=== PATIENT | female | born 1935 | race Caucasian/White ===

== ENCOUNTER 2017-03-09 14:10 | Emergency (ER) | payer OTHER, MEDICARE ==
[2017-03-09] MEDS ORDERED: SODIUM CHLORIDE 0.9% 1,000 ML IV STA (14:20)
[2017-03-09] MEDS ORDERED: DIPH,PERTUS(ACELL)TETVAC-LF 0.5 ML VIAL IM ONE (14:20)
[2017-03-09] MEDS ORDERED: RX INFO: IV CONTRAST WAS GIVEN 1 EACH MISC MISCELLANE PRN (14:20)
[2017-03-09 14:40] VITALS: RESP 20
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
[2017-03-09 14:59] LABS: Basophils % (A) 0 %; CH 31.4; CHCM 32.3; Eosinophils # (A) 0.2 k/uL (0-0.7); Eosinophils % (A) 2 %; HCT 40.2 % (34.0-46.0); HGB 13.2 gm/dL (11.4-16.0); Luc # (Auto) 0.11; Luc % (Auto) 1; Lymphocytes # (A) 1.6 k/uL (1.0-4.8); Lymphocytes % (A) 19 %; MCH 32.1 pg (25.0-35.0); MCHC 32.8 g/dL (31.0-37.0); MCV 97.7 fL (80.0-100.0); Mean Platelet Volume 6.9; Monocytes # (A) 0.4 k/uL (0-1.0); Monocytes % (A) 5 %; Neutrophils # (A) 6.3 k/uL (1.3-7.7); Neutrophils % (A) 73 %; RBC 4.11 m/uL (3.80-5.40); RDW 13.1 % (11.5-15.5); WBC 8.6 k/uL (3.8-10.6); WBC (Perox) 8.67
[2017-03-09 15:06] LABS: INR 1.1 (<1.2); Prothrombin Time 11.4 sec (9.0-12.0)
[2017-03-09 15:15] LABS: ALT 37 U/L (9-52); AST 30 U/L (14-36); Alcohol <10 mg/dL; Alkaline Phosphatase 60 U/L (38-126); Anion Gap 8 mmol/L; Blood Urea Nitrogen 25 mg/dL (7-17); Calcium 9.2 mg/dL (8.4-10.2); Carbon Dioxide 24 mmol/L (22-30); Chloride 109 mmol/L (98-107); Glucose 88 mg/dL (74-99); Non-African American GFR(MDRD) 58 (>60 ml/min/1.73 sqM); Potassium 4.3 mmol/L (3.5-5.1); Sodium 141 mmol/L (137-145); Total Bilirubin 0.4 mg/dL (0.2-1.3); Total Protein 6.3 g/dL (6.3-8.2)
[2017-03-09 15:19] LABS: Creatine Kinase 308 U/L (30-135)
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
[2017-03-09 15:32] LABS: Troponin I <0.012 ng/mL (0.000-0.034)
[2017-03-09 15:34] LABS: Partial Thromboplastin Time 20.4 sec (22.0-30.0)
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
[2017-03-09 15:45] LABS: Creatine Kinase MB 5.9 ng/mL (0.0-2.4)
[2017-03-09 16:06] LABS: Appearance,Urine Clear (Clear); Bacteria,Urine Rare /hpf; Bilirubin,Urine Negative (Negative); Glucose,Urine (UA) Negative (Negative); Ketones,Urine Negative (Negative); Leukocyte Esterase,Urine Large (Negative); Nitrite,Urine Negative (Negative); PH, Urine 5.5 (5.0-8.0); Particle Count 2141; Protein,Urine Negative (Negative); RBC,Urine 3 /hpf (0-5); Specific Gravity,Urine 1.024 (1.001-1.035); Squamous Epithelial Cell,Urine 1 /hpf (0-4); UA Billing (MACRO vs. MICRO) MICRO; Urobilinogen,Urine <2.0 mg/dL (<2.0); WBC,Urine 53 /hpf (0-5)
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
[2017-03-09 18:58] VITALS: BP 160/87; PULSE 74; TEMP 98.2
== END 2017-03-09 18:19 | disposition other institution (70) ==
LOC: EC 14:10
DX: S06.0X0A Concussion without loss of consciousness, initial encounter (principal); S22.41XA Multiple fractures of ribs, right side, initial encounter for closed fracture; S81.812A Laceration without foreign body, left lower leg, initial encounter; S00.83XA Contusion of other part of head, initial encounter; S50.819A Abrasion of unspecified forearm, initial encounter; R40.2142 Coma scale, eyes open, spontaneous, at arrival to emergency department; R40.2242 Coma scale, best verbal response, confused conversation, at arrival to emergency department; R40.2362 Coma scale, best motor response, obeys commands, at arrival to emergency department; I10 Essential (primary) hypertension; Z95.5 Presence of coronary angioplasty implant and graft; Z95.1 Presence of aortocoronary bypass graft; Z96.653 Presence of artificial knee joint, bilateral; Z79.51 Long term (current) use of inhaled steroids; Z79.82 Long term (current) use of aspirin; Z79.899 Other long term (current) drug therapy; Z88.0 Allergy status to penicillin; Z88.8 Allergy status to other drugs, medicaments and biological substances; Z23 Encounter for immunization; V49.40XA Driver injured in collision with unspecified motor vehicles in traffic accident, initial encounter; Y92.410 Unspecified street and highway as the place of occurrence of the external cause
CPT/HCPCS: 99285; 96360; 96361 ×2; 90471; 36415; 93005; 86900; 86901; 80053; 82550; 82553; 84484; 85025; 85610; 85730; 86850; 81001; 80306; 80320; 71010; 73090; 72170; 73590; 73562; 72125; 70450; 71260; 74177; 90715; Q9967

== ENCOUNTER 2017-03-17 20:36 | Inpatient (IN) | payer OTHER, MEDICARE ==
[2017-03-17] MEDS ORDERED: SODIUM CHLORIDE 0.9% 1,000 ML IV ONE ×2 (21:18→23:31)
[2017-03-17 21:27] LABS: Glucose,Whole Blood 121 mg/dL (75-99)
[2017-03-17 21:34] LABS: Basophils # (A) 0.1 k/uL (0-0.2); Basophils % (A) 1 %; CH 32.6; CHCM 33.6; Eosinophils # (A) 0.2 k/uL (0-0.7); Eosinophils % (A) 2 %; HCT 32.4 % (34.0-46.0); HDW 2.21; HGB 10.7 gm/dL (11.4-16.0); Luc # (Auto) 0.13; Luc % (Auto) 1; Lymphocytes # (A) 1.5 k/uL (1.0-4.8); Lymphocytes % (A) 15 %; MCH 32.3 pg (25.0-35.0); MCHC 33.1 g/dL (31.0-37.0); MCV 97.5 fL (80.0-100.0); Mean Platelet Volume 7.3; Monocytes # (A) 0.6 k/uL (0-1.0); Monocytes % (A) 7 %; Neutrophils # (A) 7.1 k/uL (1.3-7.7); Neutrophils % (A) 74 %; RBC 3.33 m/uL (3.80-5.40); RDW 14.1 % (11.5-15.5); WBC 9.6 k/uL (3.8-10.6); WBC (Perox) 10.45
[2017-03-17 21:42] LABS: INR 1.1 (<1.2); Prothrombin Time 10.8 sec (9.0-12.0)
[2017-03-17 21:45] LABS: Calcium 9.3 mg/dL (8.4-10.2); Potassium 5.2 mmol/L (3.5-5.1); Total Bilirubin 1.2 mg/dL (0.2-1.3)
[2017-03-17 21:48] LABS: Creatine Kinase <20 U/L (30-135)
[2017-03-17 21:53] LABS: Partial Thromboplastin Time 22.5 sec (22.0-30.0)
--- NOTE | 2017-03-17 21:53 | ED ---
Altered Mental Status HPI - General Chief Complaint: Altered Mental Status Stated Complaint: Altered/Headache Time Seen by Provider: 03/17/17 21:07 Source: patient, EMS, RN notes reviewed, old records reviewed Mode of arrival: EMS Limitations: no limitations - History of Present Illness Initial Comments: 81-year-old female presented for evaluation. Patient is uncertain why she is here. She is alert and oriented 2. She is complaining of left lower extremity pain. But states this is not why she is in the emergency department. She is confused, unable to give a detailed history. Denies chest pain or shortness of breath. Denies abdominal pain. Denies headache. Medical Record is reviewed. Additional history obtained from detention staff, patient was hypotensive and tachycardia, she has worsening swelling and erythema of her left lower extremity. Patient was more confused, over the past 24-48 hours. - Related Data Home Medications Medication Instructions Recorded Confirmed Enalapril [Vasotec] 2.5 mg PO DAILY@0800 12/09/14 03/17/17 Ferrous Sulfate [Feosol] 325 mg PO BID@0800,169912/09/14 03/17/17 Furosemide [Lasix] 40 mg PO DAILY@0600 12/09/14 03/17/17 Nitroglycerin Sl Tabs [Nitrostat] 0.4 mg PO Q5M PRN 12/09/14 03/17/17 Potassium Chloride [Klor-Con 20] 20 meq PO BID@0800,169912/09/14 03/17/17 Raloxifene [Evista] 60 mg PO DAILY@0812/09/14 03/17/17 Ranitidine HCl 150 mg PO BID@0800,209912/09/14 03/17/17 Topiramate 50 mg PO BID@0800,209912/09/14 03/17/17 traMADol HCL [Ultram] 50 mg PO Q12H PRN 12/09/14 03/17/17 Aspirin EC [Ecotrin Low Dose] 81 mg PO DAILY@1700 03/09/17 03/17/17 Bisacodyl [Dulcolax] 10 mg RECTAL DAILY PRN 03/17/17 03/17/17 Docusate [Colace] 100 mg PO DAILY@0800 03/17/17 03/17/17 HYDROcodone/APAP 5-325MG [[place] 1 tab PO Q6H PRN 03/17/17 03/17/17 5-325] Lactose-Reduced Food [Ensure Plus] 237 ml PO QID@08,12,17,21 03/17/17 03/17/17 Lidocaine 5% Patch [Lidoderm] 1 patch TOPICAL DAILY@0800 03/17/17 03/17/17 Magnesium Hydroxide [Milk of 2,400 mg PO DAILY PRN 03/17/17 03/17/17 Magnesia] Na Phos,M-B/Na Phos,Di-Ba [Fleet 133 ml RECTAL DAILY PRN 03/17/17 03/17/17 Adult] Nystatin 100,000 Unit/gm Powd 1 applic TOPICAL BID 03/17/17 03/17/17 [Mycostatin Powder] Sennosides [Senna] 17.2 mg PO BID PRN 03/17/17 03/17/17 Allergies Allergy/AdvReac Type Severity Reaction Status Date / Time dipyridamole Allergy Anaphylaxis Verified 03/17/17 20:59 [From Persantine] Penicillins Allergy Swelling Verified 03/17/17 20:59 diphenhydramine AdvReac Hallucinati Verified 03/17/17 20:59 [From Benadryl] ons steroids AdvReac Hallucinati Uncoded 03/09/17 15:58 ons Review of Systems ROS Statement: Those systems with pertinent positive or pertinent negative responses have been documented in the HPI. ROS Other: All systems not noted in ROS Statement are negative. Past Medical History Past Medical History: Chest Pain / Angina, Diabetes Mellitus, Hypertension, Osteoarthritis (OA), Pneumonia Additional Past Medical History / Comment(s): lt leg swollen wound on leg states has had cellulitis, shortness of breath with activity, states on occasion when eating passes out for 10-20 seconds pt attributes to vagal stimulation, hx kidney stones, allergies History of Any Multi-Drug Resistant Organisms: Unobtainable Past Surgical History: Appendectomy, Back Surgery, Bariatric Surgery, Section, Cholecystectomy, Coronary Bypass/CABG, Heart Catheterization, Hysterectomy, Orthopedic Surgery Additional Past Surgical History / Comment(s): hx lap band surgery, bilateral knee replacement, Past Anesthesia/Blood Transfusion Reactions: No Reported Reaction Past Psychological History: Unable to Obtain Smoking Status: Never smoker Past Alcohol Use History: Unable to Obtain Past Drug Use History: Unable to Obtain - Past Family History Father Family Medical History: Myocardial Infarction (SD) General Exam Limitations: no limitations General appearance: alert, in no apparent distress Head exam: Present: atraumatic, normocephalic Eye exam: Present: normal appearance, PERRL ENT exam: Present: mucous membranes dry Neck exam: Present: normal inspection. Absent: tenderness, meningismus Respiratory exam: Present: normal lung sounds bilaterally. Absent: respiratory distress Cardiovascular Exam: Present: regular rate, normal rhythm GI/Abdominal exam: Present: soft. Absent: distended, tenderness Extremities exam: Present: tenderness, calf tenderness, other (Large laceration to the anterior rate, this has been repaired with nylon sutures, there is erythema both proximally and distal to this injury with ecchymosis in various stages of healing.) Neurological exam: Present: alert. Absent: oriented X3, motor sensory deficit Psychiatric exam: Present: normal affect, normal mood Skin exam: Present: warm, dry. Absent: cyanosis, diaphoretic Course Vital Signs 03/17/17 03/17/17 03/17/17 20:39 21:33 22:20 Temperature 99.3 F Pulse Rate 85 77 76 Respiratory 17 18 16 Rate Blood Pressure 93/51 100/57 96/53 O2 Sat by Pulse 97 98 97 Oximetry - Reevaluation(s) Reevaluation #1: 03/17/17 23:34 EKG shows sinus rhythm with occasional PVC, ventricular rate 86 ME 136, QRS duration 82, QTC [address] segment elevation or depression Medical Decision Making - Medical Decision Making 81-year-old female presenting for evaluation of altered mental status, hypotension, tachycardia, and worsening left lower extremity swelling and erythema. Patient had recent injury to this leg had sutures placed, on examination there does appear to be worsening infection in this leg. X-rays obtained, does show soft tissue swelling, no gas noted. Chest x-ray was negative for pneumonia. CT of the head shows no acute findings. Laboratory studies reveal normal white blood cell count 9.6, hemoglobin stable at 10.7, mild hyperkalemia at 5.2, creatinine is 1.3 from a baseline of 1. Urinalysis negative for signs of infection. Patient will be given IV hydration, started on vancomycin for left lower extremity cellulitis. Diagnosis: Respiratory cellulitis, acute kidney injury, hyperkalemia, altered mental status. - Lab Data Result diagrams: 03/17/17 21:05 03/17/17 21:05 Lab Results 03/17/17 03/17/17 03/17/17 Range/Units 21:05 21:05 21:05 WBC 9.6 (3.8-10.6) k/uL RBC 3.33 L (3.80-5.40) m/uL Hgb 10.7 L (11.4-16.0) gm/dL Hct 32.4 L (34.0-46.0) % MCV 97.5 (80.0-100.0) fL MCH 32.3 (25.0-35.0) pg MCHC 33.1 (31.0-37.0) g/dL RDW 14.1 (11.5-15.5) % Plt Count 416 (150-450) k/uL Neutrophils % 74 % Lymphocytes % 15 % Monocytes % 7 % Eosinophils % 2 % Basophils % 1 % Neutrophils # 7.1 (1.3-7.7) k/uL Lymphocytes # 1.5 (1.0-4.8) k/uL Monocytes # 0.6 (0-1.0) k/uL Eosinophils # 0.2 (0-0.7) k/uL Basophils # 0.1 (0-0.2) k/uL PT (9.0-12.0) sec INR (<1.2) APTT (22.0-30.0) sec VBG pH (7.31-7.41) VBG pCO2 (37-51) mmHg VBG HCO3 (24-28) mmol/L Sodium 134 L (137-145) mmol/L Potassium 5.2 H (3.5-5.1) mmol/L Chloride 101 (98-107) mmol/L Carbon Dioxide 22 (22-30) mmol/L Anion Gap 11 mmol/L BUN 41 H (7-17) mg/dL Creatinine 1.30 H (0.52-1.04) mg/dL Est GFR (MDRD) Af Amer 47 (>60 ml/min/1.73 sqM) Est GFR (MDRD) Non-Af 39 (>60 ml/min/1.73 sqM) Glucose 116 H (74-99) mg/dL POC Glucose (mg/dL) (75-99) mg/dL POC Glu Civil Structural Engineer ID Plasma Lactic Acid Gabriel (0.7-2.0) mmol/L Calcium 9.3 (8.4-10.2) mg/dL Magnesium (1.6-2.3) mg/dL Total Bilirubin 1.2 (0.2-1.3) mg/dL AST 16 (14-36) U/L ALT 29 (9-52) U/L Alkaline Phosphatase 68 (38-126) U/L Total Creatine Kinase <20 L (30-135) U/L CK-MB (CK-2) 0.6 (0.0-2.4) ng/mL CK-MB (CK-2) Rel Index Troponin I 0.031 (0.000-0.034) ng/mL Total Protein 6.0 L (6.3-8.2) g/dL Albumin 3.1 L (3.5-5.0) g/dL Urine Color Urine Appearance (Clear) Urine pH (5.0-8.0) Ur Specific [place] (1.001-1.035) Urine Protein (Negative) Urine Glucose (UA) (Negative) Urine Ketones (Negative) Urine Blood (Negative) Urine Nitrite (Negative) Urine Bilirubin (Negative) Urine Urobilinogen (<2.0) mg/dL Ur Leukocyte Esterase (Negative) Urine RBC (0-5) /hpf Urine WBC (0-5) /hpf Ur Squamous Epith Cells (0-4) /hpf Urine Bacteria (None) /hpf Urine Mucus (None) /hpf Urine Opiates Screen (NotDetected) Ur Oxycodone Screen (NotDetected) Urine Methadone Screen (NotDetected) Ur Propoxyphene Screen (NotDetected) Ur Barbiturates Screen (NotDetected) U Tricyclic Antidepress (NotDetected) Ur Phencyclidine Scrn (NotDetected) Ur Amphetamines Screen (NotDetected) U Methamphetamines Scrn (NotDetected) U Benzodiazepines Scrn (NotDetected) Urine Cocaine Screen (NotDetected) U Marijuana (THC) Screen (NotDetected) 03/17/17 03/17/17 03/17/17 Range/Units 21:05 21:05 21:05 WBC (3.8-10.6) k/uL RBC (3.80-5.40) m/uL Hgb (11.4-16.0) gm/dL Hct (34.0-46.0) % MCV (80.0-100.0) fL MCH (25.0-35.0) pg MCHC (31.0-37.0) g/dL RDW (11.5-15.5) % Plt Count (150-450) k/uL Neutrophils % % Lymphocytes % % Monocytes % % Eosinophils % % Basophils % % Neutrophils # (1.3-7.7) k/uL Lymphocytes # (1.0-4.8) k/uL Monocytes # (0-1.0) k/uL Eosinophils # (0-0.7) k/uL Basophils # (0-0.2) k/uL PT 10.8 (9.0-12.0) sec INR 1.1 (<1.2) APTT 22.5 (22.0-30.0) sec VBG pH (7.31-7.41) VBG pCO2 (37-51) mmHg VBG HCO3 (24-28) mmol/L Sodium (137-145) mmol/L Potassium (3.5-5.1) mmol/L Chloride (98-107) mmol/L Carbon Dioxide (22-30) mmol/L Anion Gap mmol/L BUN (7-17) mg/dL Creatinine (0.52-1.04) mg/dL Est GFR (MDRD) Af Amer (>60 ml/min/1.73 sqM) Est GFR (MDRD) Non-Af (>60 ml/min/1.73 sqM) Glucose (74-99) mg/dL POC Glucose (mg/dL) (75-99) mg/dL POC Glu Civil Structural Engineer ID Plasma Lactic Acid Gabriel 1.4 (0.7-2.0) mmol/L Calcium (8.4-10.2) mg/dL Magnesium 2.1 (1.6-2.3) mg/dL Total Bilirubin (0.2-1.3) mg/dL AST (14-36) U/L ALT (9-52) U/L Alkaline Phosphatase (38-126) U/L Total Creatine Kinase (30-135) U/L CK-MB (CK-2) (0.0-2.4) ng/mL CK-MB (CK-2) Rel Index Troponin I (0.000-0.034) ng/mL Total Protein (6.3-8.2) g/dL Albumin (3.5-5.0) g/dL Urine Color Urine Appearance (Clear) Urine pH (5.0-8.0) Ur Specific [place] (1.001-1.035) Urine Protein (Negative) Urine Glucose (UA) (Negative) Urine Ketones (Negative) Urine Blood (Negative) Urine Nitrite (Negative) Urine Bilirubin (Negative) Urine Urobilinogen (<2.0) mg/dL Ur Leukocyte Esterase (Negative) Urine RBC (0-5) /hpf Urine WBC (0-5) /hpf Ur Squamous Epith Cells (0-4) /hpf Urine Bacteria (None) /hpf Urine Mucus (None) /hpf Urine Opiates Screen (NotDetected) Ur Oxycodone Screen (NotDetected) Urine Methadone Screen (NotDetected) Ur Propoxyphene Screen (NotDetected) Ur Barbiturates Screen (NotDetected) U Tricyclic Antidepress (NotDetected) Ur Phencyclidine Scrn (NotDetected) Ur Amphetamines Screen (NotDetected) U Methamphetamines Scrn (NotDetected) U Benzodiazepines Scrn (NotDetected) Urine Cocaine Screen (NotDetected) U Marijuana (THC) Screen (NotDetected) 03/17/17 03/17/17 03/17/17 Range/Units 21:26 21:32 21:32 WBC (3.8-10.6) k/uL RBC (3.80-5.40) m/uL Hgb (11.4-16.0) gm/dL Hct (34.0-46.0) % MCV (80.0-100.0) fL MCH (25.0-35.0) pg MCHC (31.0-37.0) g/dL RDW (11.5-15.5) % Plt Count (150-450) k/uL Neutrophils % % Lymphocytes % % Monocytes % % Eosinophils % % Basophils % % Neutrophils # (1.3-7.7) k/uL Lymphocytes # (1.0-4.8) k/uL Monocytes # (0-1.0) k/uL Eosinophils # (0-0.7) k/uL Basophils # (0-0.2) k/uL PT (9.0-12.0) sec INR (<1.2) APTT (22.0-30.0) sec VBG pH (7.31-7.41) VBG pCO2 (37-51) mmHg VBG HCO3 (24-28) mmol/L Sodium (137-145) mmol/L Potassium (3.5-5.1) mmol/L Chloride (98-107) mmol/L Carbon Dioxide (22-30) mmol/L Anion Gap mmol/L BUN (7-17) mg/dL Creatinine (0.52-1.04) mg/dL Est GFR (MDRD) Af Amer (>60 ml/min/1.73 sqM) Est GFR (MDRD) Non-Af (>60 ml/min/1.73 sqM) Glucose (74-99) mg/dL POC Glucose (mg/dL) 121 H (75-99) mg/dL POC Glu Civil Structural Engineer ID Sarkis Tiffanie Plasma Lactic Acid Gabriel (0.7-2.0) mmol/L Calcium (8.4-10.2) mg/dL Magnesium (1.6-2.3) mg/dL Total Bilirubin (0.2-1.3) mg/dL AST (14-36) U/L ALT (9-52) U/L Alkaline Phosphatase (38-126) U/L Total Creatine Kinase (30-135) U/L CK-MB (CK-2) (0.0-2.4) ng/mL CK-MB (CK-2) Rel Index Troponin I (0.000-0.034) ng/mL Total Protein (6.3-8.2) g/dL Albumin (3.5-5.0) g/dL Urine Color Yellow Urine Appearance Clear (Clear) Urine pH 7.0 (5.0-8.0) Ur Specific [place] 1.012 (1.001-1.035) Urine Protein Negative (Negative) Urine Glucose (UA) Negative (Negative) Urine Ketones Negative (Negative) Urine Blood Negative (Negative) Urine Nitrite Negative (Negative) Urine Bilirubin Negative (Negative) Urine Urobilinogen 12.0 (<2.0) mg/dL Ur Leukocyte Esterase Trace H (Negative) Urine RBC <1 (0-5) /hpf Urine WBC 2 (0-5) /hpf Ur Squamous Epith Cells 1 (0-4) /hpf Urine Bacteria Rare H (None) /hpf Urine Mucus Rare H (None) /hpf Urine Opiates Screen Detected H (NotDetected) Ur Oxycodone Screen Not Detected (NotDetected) Urine Methadone Screen Not Detected (NotDetected) Ur Propoxyphene Screen Not Detected (NotDetected) Ur Barbiturates Screen Not Detected (NotDetected) U Tricyclic Antidepress Not Detected (NotDetected) Ur Phencyclidine Scrn Not Detected (NotDetected) Ur Amphetamines Screen Not Detected (NotDetected) U Methamphetamines Scrn Not Detected (NotDetected) U Benzodiazepines Scrn Not Detected (NotDetected) Urine Cocaine Screen Not Detected (NotDetected) U Marijuana (THC) Screen Not Detected (NotDetected) 03/17/17 Range/Units 22:21 WBC (3.8-10.6) k/uL RBC (3.80-5.40) m/uL Hgb (11.4-16.0) gm/dL Hct (34.0-46.0) % MCV (80.0-100.0) fL MCH (25.0-35.0) pg MCHC (31.0-37.0) g/dL RDW (11.5-15.5) % Plt Count (150-450) k/uL Neutrophils % % Lymphocytes % % Monocytes % % Eosinophils % % Basophils % % Neutrophils # (1.3-7.7) k/uL Lymphocytes # (1.0-4.8) k/uL Monocytes # (0-1.0) k/uL Eosinophils # (0-0.7) k/uL Basophils # (0-0.2) k/uL PT (9.0-12.0) sec INR (<1.2) APTT (22.0-30.0) sec VBG pH 7.36 (7.31-7.41) VBG pCO2 49 (37-51) mmHg VBG HCO3 27 (24-28) mmol/L Sodium (137-145) mmol/L Potassium (3.5-5.1) mmol/L Chloride (98-107) mmol/L Carbon Dioxide (22-30) mmol/L Anion Gap mmol/L BUN (7-17) mg/dL Creatinine (0.52-1.04) mg/dL Est GFR (MDRD) Af Amer (>60 ml/min/1.73 sqM) Est GFR (MDRD) Non-Af (>60 ml/min/1.73 sqM) Glucose (74-99) mg/dL POC Glucose (mg/dL) (75-99) mg/dL POC Glu Civil Structural Engineer ID Plasma Lactic Acid Gabriel (0.7-2.0) mmol/L Calcium (8.4-10.2) mg/dL Magnesium (1.6-2.3) mg/dL Total Bilirubin (0.2-1.3) mg/dL AST (14-36) U/L ALT (9-52) U/L Alkaline Phosphatase (38-126) U/L Total Creatine Kinase (30-135) U/L CK-MB (CK-2) (0.0-2.4) ng/mL CK-MB (CK-2) Rel Index Troponin I (0.000-0.034) ng/mL Total Protein (6.3-8.2) g/dL Albumin (3.5-5.0) g/dL Urine Color Urine Appearance (Clear) Urine pH (5.0-8.0) Ur Specific [place] (1.001-1.035) Urine Protein (Negative) Urine Glucose (UA) (Negative) Urine Ketones (Negative) Urine Blood (Negative) Urine Nitrite (Negative) Urine Bilirubin (Negative) Urine Urobilinogen (<2.0) mg/dL Ur Leukocyte Esterase (Negative) Urine RBC (0-5) /hpf Urine WBC (0-5) /hpf Ur Squamous Epith Cells (0-4) /hpf Urine Bacteria (None) /hpf Urine Mucus (None) /hpf Urine Opiates Screen (NotDetected) Ur Oxycodone Screen (NotDetected) Urine Methadone Screen (NotDetected) Ur Propoxyphene Screen (NotDetected) Ur Barbiturates Screen (NotDetected) U Tricyclic Antidepress (NotDetected) Ur Phencyclidine Scrn (NotDetected) Ur Amphetamines Screen (NotDetected) U Methamphetamines Scrn (NotDetected) U Benzodiazepines Scrn (NotDetected) Urine Cocaine Screen (NotDetected) U Marijuana (THC) Screen (NotDetected) Disposition Clinical Impression: Altered mental status, Acute kidney injury, Dehydration, Lower extremity cellulitis Disposition: ADMITTED IP TO THIS HOSP Condition: Stable Referrals: Zan Cantrell MD [Primary Care Provider] - 1-2 days Decision to Admit Reason: Admit from EC Decision Date: 03/17/17 Decision Time: 23:36
[2017-03-17 22:01] LABS: Creatine Kinase MB 0.6 ng/mL (0.0-2.4); Troponin I 0.031 ng/mL (0.000-0.034)
[2017-03-17 22:04] LABS: Appearance,Urine Clear (Clear); Bacteria,Urine Rare /hpf; Bilirubin,Urine Negative (Negative); Glucose,Urine (UA) Negative (Negative); Ketones,Urine Negative (Negative); Leukocyte Esterase,Urine Trace (Negative); Mucus,Urine Rare /hpf; Nitrite,Urine Negative (Negative); Particle Count 3068; Protein,Urine Negative (Negative); RBC,Urine <1 /hpf (0-5); Specific Gravity,Urine 1.012 (1.001-1.035); Squamous Epithelial Cell,Urine 1 /hpf (0-4); UA Billing (MACRO vs. MICRO) MICRO; WBC,Urine 2 /hpf (0-5)
--- NOTE | 2017-03-17 22:16 | XR ---
EXAMINATION TYPE: XR chest 2V DATE OF EXAM: 03/17/2017 COMPARISON: 03/09/2017 HISTORY: Chest pain TECHNIQUE: Frontal and lateral views of the chest are obtained. FINDINGS: There is no heart failure nor confluent pneumonic infiltrate. Thoracic aorta is atheromato us. There are sternal wires. There is spurring in the thoracic spine. There is no pleural effusion. IMPRESSION: No active cardiopulmonary disease. No change. Atheromatous aorta.
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
[2017-03-17 22:31] LABS: VBG PH 7.36 (7.31-7.41)
--- NOTE | 2017-03-17 22:55 | CT ---
EXAMINATION TYPE: CT brain wo con DATE OF EXAM: 03/17/2017 COMPARISON: 03/09/2017 HISTORY: Altered mental status. Hypotension. CT DLP: 1198.00 mGycm Automated exposure control for dose reduction was used. FINDINGS: There is cerebral cortical atrophy. There is mild enlargement of the ventricles. There is no mass eff ect nor midline shift. There is no sign of intracranial hemorrhage. The calvarium is intact. IMPRESSION: CEREBRAL ATROPHY. NO ACUTE INTRACRANIAL ABNORMALITY. NORMAL PRESSURE TYPE HYDROCEPHALUS. NO CHANGE.
[2017-03-17] MEDS ORDERED: IV VANCOMYCIN PER PHARMACY 1 EACH MISC MISCELLANE PRN (23:31)
[2017-03-17] MEDS ORDERED: ONDANSETRON 4 MG/2 ML VIAL IVP PRN (23:36)
[2017-03-17] MEDS ORDERED: NALOXONE 0.4 MG/ML 1 ML VIAL IV PRN (23:36)
[2017-03-17] MEDS ORDERED: HYDROcodone/APAP 5-325MG 1 EACH TAB PO PRN (23:37)
[2017-03-17] MEDS ORDERED: VANCOMYCIN 1,250 MG in SODIUM CHLORIDE 0.9% 250 ML IVPB STA (23:41)
[2017-03-18 01:28] VITALS: BMI 31.3
[2017-03-18 07:24] LABS: Basophils % (A) 0 %; CH 32.2; CHCM 32.7; Eosinophils # (A) 0.2 k/uL (0-0.7); Eosinophils % (A) 3 %; HCT 30.9 % (34.0-46.0); HDW 2.21; Luc # (Auto) 0.12; Luc % (Auto) 2; Lymphocytes # (A) 1.3 k/uL (1.0-4.8); Lymphocytes % (A) 18 %; MCH 31.9 pg (25.0-35.0); MCHC 32.2 g/dL (31.0-37.0); Mean Platelet Volume 7.1; Monocytes # (A) 0.5 k/uL (0-1.0); Monocytes % (A) 7 %; Neutrophils # (A) 5.1 k/uL (1.3-7.7); Neutrophils % (A) 71 %; RBC 3.12 m/uL (3.80-5.40); RDW 14.2 % (11.5-15.5); WBC 7.3 k/uL (3.8-10.6); WBC (Perox) 8.01
[2017-03-18 07:41] LABS: ALT 26 U/L (9-52); AST 13 U/L (14-36); Alkaline Phosphatase 55 U/L (38-126); Anion Gap 8 mmol/L; Blood Urea Nitrogen 30 mg/dL (7-17); Calcium 8.8 mg/dL (8.4-10.2); Carbon Dioxide 21 mmol/L (22-30); Chloride 107 mmol/L (98-107); Glucose 86 mg/dL (74-99); Non-African American GFR(MDRD) 57 (>60 ml/min/1.73 sqM); Potassium 4.7 mmol/L (3.5-5.1); Sodium 136 mmol/L (137-145); Total Bilirubin 1.3 mg/dL (0.2-1.3); Total Protein 5.4 g/dL (6.3-8.2)
[2017-03-18] MEDS: TOPIRAMATE 25 MG TAB PO SCH ×2 (09:56→20:42)
[2017-03-18] MEDS ORDERED: BISACODYL 10 MG SUPP RECTAL PRN (13:08)
[2017-03-18] MEDS ORDERED: MAGNESIUM HYDROXIDE 2,400 MG/10 ML CUP PO PRN (13:11)
[2017-03-18] MEDS ORDERED: SENNOSIDES 8.6 MG TAB PO PRN (13:11)
[2017-03-18] MEDS ORDERED: NA PHOS,M-B/NA PHOS,DI-BA 133 ML ENEMA RECTAL PRN (13:11)
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
[2017-03-18 15:03] LABS: Hemoglobin A1C 5.6 % (4.2-6.1)
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
[2017-03-18] MEDS ORDERED: NON-FORMULARY DRUG (Lactose-Reduced Food [Ensure Plus] 237 ML) PO SCH (17:00)
[2017-03-18] MEDS: FERROUS SULFATE 325 MG TAB PO SCH (17:08)
[2017-03-18] MEDS: POTASSIUM CHLORIDE ER 20 MEQ TAB.ER PO SCH (17:08)
[2017-03-18] MEDS: VANCOMYCIN 1,250 MG in SODIUM CHLORIDE 0.9% 250 ML IVPB SCH (17:08)
[2017-03-18 17:18] LABS: Glucose,Whole Blood 90 mg/dL (75-99)
[2017-03-18] MEDS: ACETAMINOPHEN TAB 325 MG TAB PO PRN (17:30)
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
[2017-03-18] MEDS: INSULIN LISPRO (humaLOG) 300 UNIT/3 ML VIAL SQ SCH ×2 (18:04→20:40)
[2017-03-18 18:57] LABS: Iron Saturation 20.6 (12.00-45.00)
[2017-03-18 20:19] LABS: Glucose,Whole Blood 136 mg/dL (75-99)
[2017-03-18] MEDS: HEPARIN SODIUM,PORCINE 5,000 UNIT/ML 1 ML VIAL SQ SCH (20:40)
[2017-03-18] MEDS: ASPIRIN 81 MG PO SCH (20:40)
[2017-03-18] MEDS: FAMOTIDINE 20 MG TAB PO SCH (20:40)
[2017-03-18] MEDS: NYSTATIN 100,000 UNIT/GM POWD 15 GM TOPICAL SCH (20:41)
[2017-03-18] MEDS: ZINC OXIDE 20% OINT 28.4 GM TUBE TOPICAL SCH (20:42)
[2017-03-19] MEDS ORDERED: FUROSEMIDE 40 MG TAB PO SCH (06:00)
[2017-03-19 07:14] LABS: Glucose,Whole Blood 90 mg/dL (75-99)
[2017-03-19 07:30] LABS: Basophils % (A) 1 %; CH 31.5; CHCM 31.7; Eosinophils # (A) 0.3 k/uL (0-0.7); Eosinophils % (A) 3 %; HCT 33.9 % (34.0-46.0); HDW 2.25; HGB 10.8 gm/dL (11.4-16.0); Luc # (Auto) 0.11; Luc % (Auto) 1; Lymphocytes # (A) 1.5 k/uL (1.0-4.8); Lymphocytes % (A) 18 %; Mean Platelet Volume 6.9; Monocytes # (A) 0.5 k/uL (0-1.0); Monocytes % (A) 6 %; Neutrophils # (A) 5.6 k/uL (1.3-7.7); Neutrophils % (A) 70 %; RBC 3.39 m/uL (3.80-5.40); RDW 13.6 % (11.5-15.5); WBC 8.1 k/uL (3.8-10.6)
[2017-03-19] MEDS: INSULIN LISPRO (humaLOG) 300 UNIT/3 ML VIAL SQ SCH ×4 (07:34→20:49)
[2017-03-19] MEDS: HEPARIN SODIUM,PORCINE 5,000 UNIT/ML 1 ML VIAL SQ SCH ×2 (07:39→19:58)
[2017-03-19] MEDS: TOPIRAMATE 25 MG TAB PO SCH ×2 (07:39→19:58)
[2017-03-19] MEDS: LISINOPRIL 5 MG TAB PO SCH (07:39)
[2017-03-19] MEDS: FAMOTIDINE 20 MG TAB PO SCH ×2 (07:40→19:58)
[2017-03-19] MEDS: FERROUS SULFATE 325 MG TAB PO SCH ×2 (07:40→17:14)
[2017-03-19] MEDS: RALOXIFENE 60 MG TAB PO SCH (07:40)
[2017-03-19] MEDS: DOCUSATE 100 MG CAP PO SCH (07:40)
[2017-03-19] MEDS: LIDOCAINE 5% PATCH TOPICAL SCH (07:40)
[2017-03-19] MEDS: POTASSIUM CHLORIDE ER 20 MEQ TAB.ER PO SCH ×2 (07:40→17:14)
[2017-03-19] MEDS: ZINC OXIDE 20% OINT 28.4 GM TUBE TOPICAL SCH ×2 (07:41→19:59)
[2017-03-19] MEDS: NYSTATIN 100,000 UNIT/GM POWD 15 GM TOPICAL SCH ×2 (07:41→19:59)
[2017-03-19 07:48] LABS: ALT 26 U/L (9-52); AST 14 U/L (14-36); Alkaline Phosphatase 72 U/L (38-126); Anion Gap 9 mmol/L; Blood Urea Nitrogen 22 mg/dL (7-17); Calcium 9.3 mg/dL (8.4-10.2); Carbon Dioxide 22 mmol/L (22-30); Chloride 107 mmol/L (98-107); Glucose 91 mg/dL (74-99); Non-African American GFR(MDRD) >60 (>60 ml/min/1.73 sqM); Potassium 4.5 mmol/L (3.5-5.1); Sodium 138 mmol/L (137-145); Total Bilirubin 1.1 mg/dL (0.2-1.3)
[2017-03-19] MEDS: ACETAMINOPHEN TAB 325 MG TAB PO PRN ×2 (07:48→17:13)
[2017-03-19 11:49] LABS: Glucose,Whole Blood 126 mg/dL (75-99)
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
[2017-03-19] MEDS: ASPIRIN 81 MG PO SCH (17:14)
[2017-03-19 17:16] LABS: Glucose,Whole Blood 99 mg/dL (75-99)
[2017-03-19] MEDS: traMADol 50 MG TAB PO PRN (18:01)
[2017-03-19] MEDS: VANCOMYCIN 1,250 MG in SODIUM CHLORIDE 0.9% 250 ML IVPB SCH (18:02)
[2017-03-19 20:44] LABS: Glucose,Whole Blood 152 mg/dL (75-99)
[2017-03-20 06:47] LABS: Basophils % (A) 0 %; CH 32.5; CHCM 32.4; Eosinophils # (A) 0.3 k/uL (0-0.7); Eosinophils % (A) 4 %; HCT 32.7 % (34.0-46.0); HDW 2.25; HGB 10.2 gm/dL (11.4-16.0); Luc # (Auto) 0.12; Luc % (Auto) 2; Lymphocytes # (A) 1.4 k/uL (1.0-4.8); Lymphocytes % (A) 18 %; MCH 31.5 pg (25.0-35.0); MCHC 31.3 g/dL (31.0-37.0); MCV 100.8 fL (80.0-100.0); Macrocytosis Slight; Mean Platelet Volume 7.2; Monocytes # (A) 0.5 k/uL (0-1.0); Monocytes % (A) 6 %; Neutrophils # (A) 5.3 k/uL (1.3-7.7); Neutrophils % (A) 71 %; RBC 3.25 m/uL (3.80-5.40); RDW 14.2 % (11.5-15.5); WBC 7.6 k/uL (3.8-10.6); WBC (Perox) 8.07
[2017-03-20 07:04] LABS: ALT 23 U/L (9-52); AST 13 U/L (14-36); Alkaline Phosphatase 68 U/L (38-126); Anion Gap 7 mmol/L; Blood Urea Nitrogen 24 mg/dL (7-17); Calcium 9.2 mg/dL (8.4-10.2); Carbon Dioxide 22 mmol/L (22-30); Chloride 107 mmol/L (98-107); Glucose 86 mg/dL (74-99); Non-African American GFR(MDRD) 58 (>60 ml/min/1.73 sqM); Potassium 4.7 mmol/L (3.5-5.1); Sodium 136 mmol/L (137-145); Total Bilirubin 0.7 mg/dL (0.2-1.3); Total Protein 5.6 g/dL (6.3-8.2)
[2017-03-20 08:01] LABS: Glucose,Whole Blood 147 mg/dL (75-99)
[2017-03-20] MEDS: FAMOTIDINE 20 MG TAB PO SCH ×2 (09:47→20:32)
[2017-03-20] MEDS: POTASSIUM CHLORIDE ER 20 MEQ TAB.ER PO SCH ×2 (09:48→15:55)
[2017-03-20] MEDS: FERROUS SULFATE 325 MG TAB PO SCH ×2 (09:49→15:54)
[2017-03-20] MEDS: TOPIRAMATE 25 MG TAB PO SCH ×2 (09:50→20:32)
[2017-03-20] MEDS: DOCUSATE 100 MG CAP PO SCH (09:50)
[2017-03-20] MEDS: RALOXIFENE 60 MG TAB PO SCH (09:52)
[2017-03-20] MEDS: LIDOCAINE 5% PATCH TOPICAL SCH (09:53)
[2017-03-20] MEDS: INSULIN LISPRO (humaLOG) 300 UNIT/3 ML VIAL SQ SCH ×4 (10:08→20:33)
[2017-03-20] MEDS: HEPARIN SODIUM,PORCINE 5,000 UNIT/ML 1 ML VIAL SQ SCH ×2 (10:21→20:32)
[2017-03-20] MEDS: ZINC OXIDE 20% OINT 28.4 GM TUBE TOPICAL SCH ×2 (10:22→20:33)
[2017-03-20] MEDS: NYSTATIN 100,000 UNIT/GM POWD 15 GM TOPICAL SCH ×2 (10:22→20:33)
[2017-03-20] MEDS: ACETAMINOPHEN TAB 325 MG TAB PO PRN (11:12)
[2017-03-20] MEDS: LISINOPRIL 5 MG TAB PO SCH (11:34)
[2017-03-20 11:48] LABS: Glucose,Whole Blood 111 mg/dL (75-99)
[2017-03-20] MEDS: FUROSEMIDE 40 MG TAB PO SCH (14:27)
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
[2017-03-20] MEDS: ASPIRIN 81 MG PO SCH (15:54)
[2017-03-20] MEDS: traMADol 50 MG TAB PO PRN (17:09)
[2017-03-20] MEDS: VANCOMYCIN 1,250 MG in SODIUM CHLORIDE 0.9% 250 ML IVPB SCH (17:10)
[2017-03-20 17:44] LABS: Glucose,Whole Blood 119 mg/dL (75-99)
[2017-03-20 20:24] LABS: Glucose,Whole Blood 135 mg/dL (75-99)
--- NOTE | 2017-03-21 06:48 | PN ---
PROGRESS NOTE DATE OF SERVICE: 03/20/2017 REASON FOR FOLLOWUP: Left leg cellulitis. INTERVAL HISTORY: The patient is afebrile. She is breathing comfortably. Denies any chest pain or shortness of breath or cough. No abdominal pain or any worsening of pain in the left leg area. PHYSICAL EXAMINATION: On examination, blood pressure 117/63 with a pulse of 87, temperature 99.1. She is 98% on room air. General description is an elderly female, up in the chair, in no distress. RESPIRATORY SYSTEM: Unlabored breathing, clear to auscultation. HEART: S1, S2. Regular rate and rhythm. ABDOMEN: Soft, no tenderness. Left leg swelling redness persists, no worsening. Wound still has . LABS: Hemoglobin is 10.2, white count 7.6. Cultures have been negative so far. DIAGNOSTIC IMPRESSION AND PLAN: Patient with left lower extremity cellulitis and the patient also have a necrotic skin site of previous laceration. Recommend obtaining a vascular surgery consult with Dr. Mejia for possible debridement of that area as orthopedics recommended . She will continue on vancomycin pharmacy to dose. Continue supportive care. MMODL / IJN: [id number] /
[2017-03-21 08:17] LABS: Basophils # (A) 0.1 k/uL (0-0.2); Basophils % (A) 1 %; CH 32.5; CHCM 32.8; Eosinophils # (A) 0.3 k/uL (0-0.7); Eosinophils % (A) 4 %; HCT 31.4 % (34.0-46.0); HDW 2.28; HGB 10.2 gm/dL (11.4-16.0); Luc % (Auto) 1; Lymphocytes # (A) 1.3 k/uL (1.0-4.8); Lymphocytes % (A) 17 %; MCH 32.2 pg (25.0-35.0); MCHC 32.3 g/dL (31.0-37.0); MCV 99.8 fL (80.0-100.0); Macrocytosis Slight; Mean Platelet Volume 7.6; Monocytes # (A) 0.5 k/uL (0-1.0); Monocytes % (A) 7 %; Neutrophils # (A) 5.5 k/uL (1.3-7.7); Neutrophils % (A) 71 %; RBC 3.15 m/uL (3.80-5.40); RDW 14.4 % (11.5-15.5); WBC 7.8 k/uL (3.8-10.6); WBC (Perox) 7.37
[2017-03-21 08:38] LABS: ALT 22 U/L (9-52); AST 13 U/L (14-36); Alkaline Phosphatase 74 U/L (38-126); Anion Gap 8 mmol/L; Blood Urea Nitrogen 21 mg/dL (7-17); Carbon Dioxide 20 mmol/L (22-30); Chloride 108 mmol/L (98-107); Glucose 80 mg/dL (74-99); Non-African American GFR(MDRD) >60 (>60 ml/min/1.73 sqM); Potassium 4.4 mmol/L (3.5-5.1); Sodium 136 mmol/L (137-145); Total Bilirubin 0.8 mg/dL (0.2-1.3); Total Protein 5.6 g/dL (6.3-8.2)
[2017-03-21] MEDS: FUROSEMIDE 40 MG TAB PO SCH (09:29)
[2017-03-21] MEDS: INSULIN LISPRO (humaLOG) 300 UNIT/3 ML VIAL SQ SCH ×4 (09:29→21:47)
[2017-03-21] MEDS: DOCUSATE 100 MG CAP PO SCH (09:30)
[2017-03-21] MEDS: FAMOTIDINE 20 MG TAB PO SCH (09:30)
[2017-03-21] MEDS: FERROUS SULFATE 325 MG TAB PO SCH ×2 (09:30→18:13)
[2017-03-21] MEDS: LIDOCAINE 5% PATCH TOPICAL SCH (09:31)
[2017-03-21] MEDS: TOPIRAMATE 25 MG TAB PO SCH ×2 (09:33→22:06)
[2017-03-21] MEDS: POTASSIUM CHLORIDE ER 20 MEQ TAB.ER PO SCH ×2 (09:33→18:13)
[2017-03-21] MEDS: RALOXIFENE 60 MG TAB PO SCH (09:33)
[2017-03-21] MEDS: HEPARIN SODIUM,PORCINE 5,000 UNIT/ML 1 ML VIAL SQ SCH ×2 (09:33→22:06)
[2017-03-21] MEDS: ZINC OXIDE 20% OINT 28.4 GM TUBE TOPICAL SCH (09:34)
[2017-03-21] MEDS: NYSTATIN 100,000 UNIT/GM POWD 15 GM TOPICAL SCH ×2 (09:34→22:07)
[2017-03-21] MEDS: LISINOPRIL 5 MG TAB PO SCH (09:58)
[2017-03-21] MEDS ORDERED: LIDOCAINE 1% (PF) 10MG/ML VIAL SQ ONE (11:14)
[2017-03-21 11:44] LABS: Glucose,Whole Blood 134 mg/dL (75-99)
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
[2017-03-21] MEDS ORDERED: VANCOMYCIN TROUGH DUE 1 EACH MISC MISCELLANE ONE (17:00)
[2017-03-21] MEDS ORDERED: LIDOCAINE 1% INJ 10MG/ML (20 ML MDV) SQ ONE ×2 (17:27)
[2017-03-21 17:52] LABS: Glucose,Whole Blood 108 mg/dL (75-99)
[2017-03-21] MEDS: ASPIRIN 81 MG PO SCH (18:13)
[2017-03-21] MEDS: VANCOMYCIN 1,250 MG in SODIUM CHLORIDE 0.9% 250 ML IVPB SCH (18:29)
[2017-03-21 21:09] LABS: Glucose,Whole Blood 113 mg/dL (75-99)
[2017-03-21] MEDS: traMADol 50 MG TAB PO PRN (22:03)
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
[2017-03-22] MEDS: ZINC OXIDE 20% OINT 28.4 GM TUBE TOPICAL SCH ×3 (05:33→20:08)
--- NOTE | 2017-03-22 06:00 | PN ---
PROGRESS NOTE DATE OF SERVICE: 03/21/2017. REASON FOR FOLLOW UP: Left leg wound cellulitis. INTERVAL HISTORY: The patient is afebrile. She is breathing comfortably. Denies any chest pain or shortness of breath, cough. No abdominal pain or worsening pain in the left leg area. Overall swelling and redness has improved. EXAMINATION: Blood pressure 124/58 with a pulse of 80, temperature 98.3. She is 99% on room air. General description is an elderly female up in the chair in no distress. RESPIRATORY: Unlabored breathing. Clear to auscultation anteriorly. HEART: S1, S2 regular rate and rhythm. ABDOMEN: Soft, no tenderness. LEFT LEG: Swelling and redness have improved. The area that has been stitched up still having necrotic skin, but no drainage. LABS: BUN of 21, creatinine 0.97, hemoglobin 10.8, white count 7.8. Blood culture so far negative. DIAGNOSTIC IMPRESSION AND PLAN: Patient with left leg wound, status post laceration that was stitched, with necrotic skin and some surrounding cellulitis. Await the vascular surgery evaluation, possible debridement of the necrotic skin. Local wound care to the wound. We will continue with Aquacel silver dressing. Continue patient on vancomycin, pharmacy to dose, and keep the area elevated. MMODL / IJN: [id number] /
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
[2017-03-22 07:47] LABS: Basophils # (A) 0.1 k/uL (0-0.2); Basophils % (A) 1 %; CH 31.5; CHCM 31.3; Eosinophils # (A) 0.3 k/uL (0-0.7); Eosinophils % (A) 3 %; HCT 34.6 % (34.0-46.0); HDW 2.25; HGB 11.1 gm/dL (11.4-16.0); Hypochromasia Slight; Luc # (Auto) 0.14; Luc % (Auto) 1; Lymphocytes % (A) 20 %; MCH 32.4 pg (25.0-35.0); MCHC 32.1 g/dL (31.0-37.0); MCV 101.1 fL (80.0-100.0); Macrocytosis Slight; Mean Platelet Volume 7.1; Monocytes # (A) 0.7 k/uL (0-1.0); Monocytes % (A) 7 %; Neutrophils # (A) 6.8 k/uL (1.3-7.7); Neutrophils % (A) 68 %; RBC 3.43 m/uL (3.80-5.40); RDW 13.3 % (11.5-15.5); WBC 9.9 k/uL (3.8-10.6); WBC (Perox) 9.85
[2017-03-22 07:52] LABS: Glucose,Whole Blood 110 mg/dL (75-99)
[2017-03-22 07:53] LABS: Anion Gap 11 mmol/L; Blood Urea Nitrogen 23 mg/dL (7-17); Calcium 9.2 mg/dL (8.4-10.2); Carbon Dioxide 20 mmol/L (22-30); Chloride 105 mmol/L (98-107); Glucose 86 mg/dL (74-99); Non-African American GFR(MDRD) 60 (>60 ml/min/1.73 sqM); Potassium 4.2 mmol/L (3.5-5.1); Sodium 136 mmol/L (137-145)
[2017-03-22] MEDS: INSULIN LISPRO (humaLOG) 300 UNIT/3 ML VIAL SQ SCH ×4 (07:55→21:34)
[2017-03-22] MEDS: FUROSEMIDE 40 MG TAB PO SCH (08:45)
[2017-03-22] MEDS: FERROUS SULFATE 325 MG TAB PO SCH ×2 (08:45→17:04)
[2017-03-22] MEDS: TOPIRAMATE 25 MG TAB PO SCH ×2 (08:46→20:07)
[2017-03-22] MEDS: LISINOPRIL 5 MG TAB PO SCH (08:46)
[2017-03-22] MEDS: VANCOMYCIN 1,500 MG in SODIUM CHLORIDE 0.9% 250 ML IVPB SCH (10:04)
[2017-03-22] MEDS: COLLAGENASE 250 UNIT/GM OINTMENT 30 GM TUBE TOPICAL SCH ×2 (10:55→10:58)
[2017-03-22] MEDS: POTASSIUM CHLORIDE ER 20 MEQ TAB.ER PO SCH ×2 (10:57→17:04)
[2017-03-22] MEDS: LIDOCAINE 5% PATCH TOPICAL SCH (10:57)
[2017-03-22] MEDS: RALOXIFENE 60 MG TAB PO SCH (10:57)
[2017-03-22] MEDS: DOCUSATE 100 MG CAP PO SCH (10:57)
[2017-03-22] MEDS: FAMOTIDINE 20 MG TAB PO SCH (10:57)
[2017-03-22] MEDS: HEPARIN SODIUM,PORCINE 5,000 UNIT/ML 1 ML VIAL SQ SCH ×2 (10:58→20:07)
[2017-03-22] MEDS: NYSTATIN 100,000 UNIT/GM POWD 15 GM TOPICAL SCH ×2 (10:58→22:07)
[2017-03-22 11:44] LABS: Glucose,Whole Blood 103 mg/dL (75-99)
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
[2017-03-22] MEDS ORDERED: IV FLUID CONTINUATION 1,000 ML IV ONE (12:46)
[2017-03-22] MEDS ORDERED: fentaNYL (PF) 50 MCG/ML 2 ML AMP ONE (13:10)
[2017-03-22] MEDS ORDERED: ETOMIDATE 2 MG/ML 10 ML VIAL ONE (13:10)
[2017-03-22] MEDS ORDERED: PHENYLEPHRINE-0.9% NACL SYG 1 MG/10 ML SYRINGE ONE (13:10)
[2017-03-22] MEDS ORDERED: LIDOCAINE 1% INJ 10MG/ML (20 ML MDV) ONE (13:10)
[2017-03-22] MEDS ORDERED: MIDAZOLAM 2 MG/2 ML VIAL ONE (13:10)
[2017-03-22 14:08] LABS: Glucose,Whole Blood 91 mg/dL (75-99)
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
[2017-03-22] MEDS: ASPIRIN 81 MG PO SCH (17:04)
[2017-03-22 17:17] LABS: Glucose,Whole Blood 84 mg/dL (75-99)
[2017-03-22] MEDS: traMADol 50 MG TAB PO PRN (19:41)
[2017-03-22 20:35] LABS: Glucose,Whole Blood 89 mg/dL (75-99)
--- NOTE | 2017-03-22 22:19 | PN ---
PROGRESS NOTE DATE OF SERVICE: 03/22/2017 REASON FOR FOLLOWUP: Left leg wound and cellulitis. INTERVAL HISTORY: The patient is afebrile. She has been breathing comfortably. Denies significant chest pain, shortness of breath or cough. No abdominal pain or any worsening pain in the left leg area. EXAMINATION: Blood pressure is 96/53 with a pulse of 73, temperature 97.4. She is 96% on room air. GENERAL DESCRIPTION: An elderly female lying in bed in no distress. RESPIRATORY SYSTEM: Unlabored breathing. Clear to auscultation. HEART: S1, S2. Regular rate and rhythm. ABDOMEN: Soft. No tenderness. Left leg with necrotic skin present, but redness is improved. DIAGNOSTIC IMPRESSION AND PLAN: Patient with a left leg wound with necrotic skin awaiting surgical debridement and complaint of cellulitis responding to vancomycin that will be continued and continue supportive care. Family was present at the bedside. Their questions were answered. MMODL / IJN: [id number] /
[2017-03-22] MEDS ORDERED: SODIUM CHLORIDE 0.9% 500 ML IV ONE (22:25)
[2017-03-23] MEDS ORDERED: SODIUM CHLORIDE 0.9% 500 ML IV ONE
[2017-03-23 07:22] LABS: Glucose,Whole Blood 96 mg/dL (75-99)
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
[2017-03-23 08:28] LABS: Basophils % (A) 1 %; CH 31.6; CHCM 31.5; Eosinophils # (A) 0.2 k/uL (0-0.7); Eosinophils % (A) 2 %; HCT 32.6 % (34.0-46.0); HDW 2.35; HGB 10.1 gm/dL (11.4-16.0); Hypochromasia Slight; Luc # (Auto) 0.11; Luc % (Auto) 1; Lymphocytes # (A) 1.5 k/uL (1.0-4.8); Lymphocytes % (A) 16 %; MCH 31.3 pg (25.0-35.0); Macrocytosis Slight; Mean Platelet Volume 6.8; Monocytes # (A) 0.6 k/uL (0-1.0); Monocytes % (A) 7 %; Neutrophils # (A) 6.7 k/uL (1.3-7.7); Neutrophils % (A) 74 %; RBC 3.23 m/uL (3.80-5.40); RDW 13.6 % (11.5-15.5); WBC 9.1 k/uL (3.8-10.6)
[2017-03-23 08:43] LABS: Anion Gap 12 mmol/L; Blood Urea Nitrogen 28 mg/dL (7-17); Calcium 8.9 mg/dL (8.4-10.2); Carbon Dioxide 18 mmol/L (22-30); Chloride 108 mmol/L (98-107); Glucose 79 mg/dL (74-99); Non-African American GFR(MDRD) 55 (>60 ml/min/1.73 sqM); Potassium 3.9 mmol/L (3.5-5.1); Sodium 138 mmol/L (137-145)
[2017-03-23] MEDS: TOPIRAMATE 25 MG TAB PO SCH ×2 (09:40→21:44)
[2017-03-23] MEDS: FAMOTIDINE 20 MG TAB PO SCH (09:41)
[2017-03-23] MEDS: DOCUSATE 100 MG CAP PO SCH (09:41)
[2017-03-23] MEDS: POTASSIUM CHLORIDE ER 20 MEQ TAB.ER PO SCH ×2 (09:41→17:18)
[2017-03-23] MEDS: FERROUS SULFATE 325 MG TAB PO SCH ×2 (09:41→17:17)
[2017-03-23] MEDS: RALOXIFENE 60 MG TAB PO SCH (09:42)
[2017-03-23] MEDS: INSULIN LISPRO (humaLOG) 300 UNIT/3 ML VIAL SQ SCH ×4 (09:42→21:41)
[2017-03-23] MEDS: LISINOPRIL 5 MG TAB PO SCH (09:42)
[2017-03-23] MEDS: FUROSEMIDE 40 MG TAB PO SCH (09:42)
[2017-03-23] MEDS: LIDOCAINE 5% PATCH TOPICAL SCH (09:43)
[2017-03-23] MEDS: HEPARIN SODIUM,PORCINE 5,000 UNIT/ML 1 ML VIAL SQ SCH ×2 (09:43→21:44)
[2017-03-23] MEDS: ZINC OXIDE 20% OINT 28.4 GM TUBE TOPICAL SCH ×2 (09:46→21:55)
[2017-03-23] MEDS: NYSTATIN 100,000 UNIT/GM POWD 15 GM TOPICAL SCH ×2 (09:46→21:55)
[2017-03-23] MEDS: COLLAGENASE 250 UNIT/GM OINTMENT 30 GM TUBE TOPICAL SCH (09:46)
[2017-03-23] MEDS: VANCOMYCIN 1,500 MG in SODIUM CHLORIDE 0.9% 250 ML IVPB SCH (09:55)
[2017-03-23 11:41] LABS: Glucose,Whole Blood 120 mg/dL (75-99)
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
[2017-03-23 17:11] LABS: Glucose,Whole Blood 108 mg/dL (75-99)
[2017-03-23] MEDS: ASPIRIN 81 MG PO SCH (17:17)
[2017-03-23] MEDS: ACETAMINOPHEN TAB 325 MG TAB PO PRN (17:17)
[2017-03-23] MEDS: traMADol 50 MG TAB PO PRN (20:47)
[2017-03-23 21:21] LABS: Glucose,Whole Blood 131 mg/dL (75-99)
--- NOTE | 2017-03-23 21:59 | PN ---
PROGRESS NOTE REASON FOR FOLLOWUP: Left leg wound and cellulitis. INTERVAL HISTORY: The patient is afebrile. She has been breathing comfortably. Denies having any chest pain, shortness of breath or cough, and no abdominal pain or any pain in her left leg area. PHYSICAL EXAMINATION: Blood pressure 121/58 with a pulse of 70, temperature 98. She is 100% on room air. General description is an elderly female up in the bed. No distress. RESPIRATORY SYSTEM: Unlabored breathing. Clear to auscultation anteriorly. HEART: S1, S2. Regular rate and rhythm. ABDOMEN: Soft. No tenderness. Left leg wound is currently dressed up. No obvious drainage on the dressing. LABS: Hemoglobin is 10.1, white count of 9.1 with a BUN of 28, creatinine 0.97. DIAGNOSTIC IMPRESSION AND PLAN: Patient with a left leg wound with necrotic skin, status post debridement. Local wound care with Aquacel Silver. Vancomycin will be continued, hopefully transitioning to oral antibiotic on discharge. Continue supportive care. MMODL / IJN: [id number] /
[2017-03-23 22:30] VITALS: RESP 18
--- NOTE | 2017-03-23 23:08 | EEG ---
ELECTROENCEPHALOGRAM REPORT DATE OF EE03/23/2017. REFERRING PHYSICIAN: Dr. Cantrell. CONSULTING AND INTERPRETING PHYSICIAN: Dr. Tori Gama MD. INDICATION FOR EXAMINATION: This patient is an 81-year-old female being evaluated for altered mental status and ventriculomegaly. AGE: 81. EEG FINDINGS: A routine 21-channel awake digital EEG recording was accomplished utilizing the 10-20 international system with bipolar and referential montages. The background activity in the most alert resting state consists of a low to medium amplitude, poorly developed and poorly sustained 5-6 Hz activity over the posterior head regions. This posterior rhythm attenuates minimally to eye opening. There is a small amount of low amplitude 18-20 Hz beta activity seen maximally over the anterior head regions. Muscle and movement artifact was observed on several occasions during the tracing. Hyperventilation was not performed. Photic stimulation at flash frequencies of 2-30 Hz produced a minimal occipital driving response. No epileptiform discharges were seen. Toward the mid and lateral portion of the tracing, the patient does drift into spontaneous drowsiness. IMPRESSION: This EEG is moderately abnormal in a diffuse fashion due to slowing of the EEG background. The EEG failed to reveal any focal, lateralized or epileptiform abnormalities. Clinical correlation is recommended. MMODL / IJN: [id number] /
[2017-03-24] MEDS: COLLAGENASE 250 UNIT/GM OINTMENT 30 GM TUBE TOPICAL SCH (07:26)
[2017-03-24 07:32] LABS: Glucose,Whole Blood 114 mg/dL (75-99)
[2017-03-24 07:35] LABS: Basophils % (A) 1 %; CH 32.3; CHCM 32.7; Eosinophils # (A) 0.3 k/uL (0-0.7); Eosinophils % (A) 4 %; HCT 31.5 % (34.0-46.0); Luc # (Auto) 0.09; Luc % (Auto) 1; Lymphocytes # (A) 1.3 k/uL (1.0-4.8); Lymphocytes % (A) 15 %; MCH 31.4 pg (25.0-35.0); MCHC 31.6 g/dL (31.0-37.0); MCV 99.3 fL (80.0-100.0); Macrocytosis Slight; Mean Platelet Volume 7.2; Monocytes # (A) 0.5 k/uL (0-1.0); Monocytes % (A) 6 %; Neutrophils % (A) 73 %; RBC 3.18 m/uL (3.80-5.40); RDW 14.2 % (11.5-15.5); WBC 8.2 k/uL (3.8-10.6)
[2017-03-24 08:02] VITALS: BP 114/65; PULSE 68; TEMP 98.3
[2017-03-24 08:07] LABS: Anion Gap 7 mmol/L; Blood Urea Nitrogen 26 mg/dL (7-17); Calcium 8.9 mg/dL (8.4-10.2); Carbon Dioxide 23 mmol/L (22-30); Chloride 107 mmol/L (98-107); Glucose 92 mg/dL (74-99); Non-African American GFR(MDRD) 54 (>60 ml/min/1.73 sqM); Potassium 4.3 mmol/L (3.5-5.1); Sodium 137 mmol/L (137-145)
[2017-03-24] MEDS: INSULIN LISPRO (humaLOG) 300 UNIT/3 ML VIAL SQ SCH ×2 (09:15→12:09)
[2017-03-24] MEDS: POTASSIUM CHLORIDE ER 20 MEQ TAB.ER PO SCH (09:16)
[2017-03-24] MEDS: FERROUS SULFATE 325 MG TAB PO SCH (09:16)
[2017-03-24] MEDS: TOPIRAMATE 25 MG TAB PO SCH (09:16)
[2017-03-24] MEDS: DOCUSATE 100 MG CAP PO SCH (09:17)
[2017-03-24] MEDS: RALOXIFENE 60 MG TAB PO SCH (09:17)
[2017-03-24] MEDS: LISINOPRIL 5 MG TAB PO SCH (09:18)
[2017-03-24] MEDS: LIDOCAINE 5% PATCH TOPICAL SCH (09:18)
[2017-03-24] MEDS: FAMOTIDINE 20 MG TAB PO SCH (09:18)
[2017-03-24] MEDS: FUROSEMIDE 40 MG TAB PO SCH (09:18)
[2017-03-24] MEDS: HEPARIN SODIUM,PORCINE 5,000 UNIT/ML 1 ML VIAL SQ SCH (09:22)
[2017-03-24] MEDS: ZINC OXIDE 20% OINT 28.4 GM TUBE TOPICAL SCH (09:32)
[2017-03-24] MEDS: VANCOMYCIN 1,500 MG in SODIUM CHLORIDE 0.9% 250 ML IVPB SCH (09:32)
[2017-03-24] MEDS: NYSTATIN 100,000 UNIT/GM POWD 15 GM TOPICAL SCH (09:34)
[2017-03-24 11:35] LABS: Glucose,Whole Blood 106 mg/dL (75-99)
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
--- NOTE | 2017-03-24 12:21 | PN ---
PROGRESS NOTE DATE OF SERVICE: 03/24/2017. REASON FOR FOLLOWUP VISIT: Left leg wound cellulitis. INTERVAL HISTORY: The patient is afebrile. She is breathing comfortably. Denies any chest pain, shortness of breath or cough. No abdominal pain. No pain in the left leg area. EXAMINATION: Blood pressure 114/55 with a pulse of 68, temperature 98.3. She is 94% on 2 L nasal cannula. General description is an elderly female lying in bed, in no distress. RESPIRATORY SYSTEM: Unlabored breathing. Clear to auscultation anteriorly. HEART: S1, S2. Regular rate and rhythm. ABDOMEN: Soft, no tenderness. Left leg wound necrotic skin gone. She did have a Aquacel silver dressing with surrounding redness improved. LABS: Hemoglobin is 10, white count of 8.2, BUN of 26, creatinine 0.98. Blood culture has been negative. DIAGNOSTIC IMPRESSION AND PLAN: Patient with a left leg wound and necrotic skin status post debridement. Local wound care with Aquacel Silver. Antibiotics in the form of doxycycline. The patient follow up in the wound care center next week. MMODL / IJN: [id number] /
[2017-03-25] MEDS ORDERED: VANCOMYCIN TROUGH DUE 1 EACH MISC MISCELLANE ONE (08:00)
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
== END 2017-03-24 14:20 | DRG 570 ==
LOC: EC 20:36 → 3OBS 23:36 → OBSVTOIN 03-18 13:56 → 5MS5E 03-18 20:21
PROVIDERS: ADMIT Internal Medicine; ATTEND Internal Medicine
PROC: 0JBP0ZZ Excision of Left Lower Leg Subcutaneous Tissue and Fascia, Open Approach (ICD-10-PCS; principal; 2017-03-22 10:35)
DX: L03.116 Cellulitis of left lower limb (principal); G93.41 Metabolic encephalopathy; N17.9 Acute kidney failure, unspecified; G91.2 (Idiopathic) normal pressure hydrocephalus; I95.9 Hypotension, unspecified; E87.5 Hyperkalemia; E86.0 Dehydration; E11.9 Type 2 diabetes mellitus without complications; S81.012A Laceration without foreign body, left knee, initial encounter; D64.9 Anemia, unspecified; I10 Essential (primary) hypertension; I25.10 Atherosclerotic heart disease of native coronary artery without angina pectoris; M19.90 Unspecified osteoarthritis, unspecified site; R32 Unspecified urinary incontinence; T50.1X5A Adverse effect of loop [high-ceiling] diuretics, initial encounter; R00.0 Tachycardia, unspecified; Z88.1 Allergy status to other antibiotic agents; Z88.0 Allergy status to penicillin; Z88.8 Allergy status to other drugs, medicaments and biological substances; Z79.82 Long term (current) use of aspirin; Z79.899 Other long term (current) drug therapy; Z96.653 Presence of artificial knee joint, bilateral; Z95.1 Presence of aortocoronary bypass graft; Z98.84 Bariatric surgery status; Z82.49 Family history of ischemic heart disease and other diseases of the circulatory system; V89.2XXA Person injured in unspecified motor-vehicle accident, traffic, initial encounter; Y92.009 Unspecified place in unspecified non-institutional (private) residence as the place of occurrence of the external cause; Y92.9 Unspecified place or not applicable
CPT/HCPCS: 36415; 70450; 71020; 80048; 80053; 80202; 80306; 81001; 82550; 82553; 82728; 82803; 83036; 83540; 83550; 83605; 83735; 84484; 85025; 85610; 85730; 87040; 87086; 88304; 93005; 95819; 96360; 96361; 99285

== ENCOUNTER 2017-07-26 14:10 | Observation (INO) | payer MEDICARE, OTHER ==
[2017-07-26] MEDS ORDERED: SODIUM CHLORIDE 0.9% 1,000 ML IV STA (14:21)
[2017-07-26] MEDS ORDERED: SODIUM CHLORIDE 0.9% 500 ML IV STA (14:21)
--- NOTE | 2017-07-26 14:26 | ED ---
Nausea/Vomiting/Diarrhea HPI - General Chief complaint: Nausea/Vomiting/Diarrhea Stated complaint: Syncope Time Seen by Provider: 07/26/17 14:10 Source: patient, EMS, RN notes reviewed, old records reviewed Mode of arrival: EMS Limitations: no limitations - History of Present Illness Initial comments: This is a 82-year-old female who was being loaded into a car from [facility] for a doctor's appointment when she His syncopal episode. She is reportedly been unconscious is unknown how long. Prior to that she had several episodes of nausea vomiting and loose stool. No reports of fevers chills no focal weakness noted trauma is reported. No reports of dysuria hematuria. Also no rhinorrhea cough sore throat. She is reported to have had trouble clearing her throat however. He also is reported as sometimes patient does oh syncope MD complaint: nausea, vomiting, diarrhea, other - Related Data Home Medications Medication Instructions Recorded Confirmed Nitroglycerin Sl Tabs [Nitrostat] 0.4 mg PO Q5M PRN 12/09/14 07/26/17 Potassium Chloride [Klor-Con 20] 20 meq PO BID 12/09/14 07/26/17 Raloxifene [Evista] 60 mg PO DAILY 12/09/14 07/26/17 Topiramate 50 mg PO BID@0800,1700 12/09/14 07/26/17 traMADol HCL [Ultram] 50 mg PO Q6H PRN 12/09/14 07/26/17 Aspirin EC [Ecotrin Low Dose] 81 mg PO DAILY 03/09/17 07/26/17 Docusate [Colace] 100 mg PO DAILY 03/17/17 07/26/17 Nystatin 100,000 Unit/gm Powd 1 applic TOPICAL BID 03/17/17 07/26/17 [Mycostatin Powder] Acetaminophen Tab [Tylenol] 500 mg PO DAILY 07/07/17 07/26/17 Cyanocobalamin (Vitamin B-12) 1,000 mcg PO DAILY 07/07/17 07/26/17 [Vitamin B-12] Escitalopram [Lexapro] 20 mg PO DAILY 07/07/17 07/26/17 Fluticasone Nasal [place] [Flonase 2 spr EA NOSTRIL HS 07/07/17 07/26/17 Nasal [place]] Topiramate [Topamax] 25 mg PO DAILY@0800 07/07/17 07/26/17 Vit C/E/Zn/Coppr/Lutein/Zeaxan 1 cap PO BID 07/07/17 07/26/17 [Preservision Areds 2 Softgel] Bisacodyl [Dulcolax] 10 mg RECTAL DAILY PRN 07/26/17 07/26/17 Magnesium Hydroxide [Milk of 2,400 mg PO DAILY PRN 07/26/17 07/26/17 Magnesia] Na Phos,M-B/Na Phos,Di-Ba [Fleet 133 ml RECTAL DAILY PRN 07/26/17 07/26/17 Adult] Previous Rx's Medication Instructions Recorded HYDROcodone/APAP 5-325MG [[place] 1 tab PO Q6H PRN #1 tab 07/12/17 5-325] Allergies Allergy/AdvReac Type Severity Reaction Status Date / Time dipyridamole Allergy Anaphylaxis Verified 07/26/17 14:39 [From Persantine] Penicillins Allergy Swelling Verified 07/26/17 14:39 diphenhydramine AdvReac Hallucinati Verified 07/26/17 14:39 [From Benadryl] ons steroids AdvReac Hallucinati Uncoded 03/18/17 01:05 ons Review of Systems ROS Statement: Those systems with pertinent positive or pertinent negative responses have been documented in the HPI. ROS Other: All systems not noted in ROS Statement are negative. 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 Past Surgical History: Appendectomy, Back Surgery, Bariatric Surgery, Section, Cholecystectomy, Coronary Bypass/CABG, Heart Catheterization, Hysterectomy, Orthopedic Surgery Additional Past Surgical History / Comment(s): hx lap band surgery, bilateral knee replacement, Past Anesthesia/Blood Transfusion Reactions: No Reported Reaction Past Psychological History: No Psychological Hx Reported Smoking Status: Never smoker Past Alcohol Use History: None Reported Past Drug Use History: None Reported - Past Family History Father Family Medical History: Myocardial Infarction (MS) General Exam - General Exam Comments Initial Comments: Physical well-developed well-nourished awake alert oriented 3 female Limitations: no limitations General appearance: alert, in no apparent distress Head exam: Present: atraumatic, normocephalic, normal inspection Eye exam: Present: normal appearance, PERRL, EOMI. Absent: scleral icterus, conjunctival injection, periorbital swelling ENT exam: Present: mucous membranes dry Neck exam: Present: normal inspection. Absent: tenderness, meningismus, lymphadenopathy Respiratory exam: Present: normal lung sounds bilaterally. Absent: respiratory distress, wheezes, rales, rhonchi, stridor Cardiovascular Exam: Present: regular rate, normal rhythm, normal heart sounds. Absent: systolic murmur, diastolic murmur, rubs, gallop, clicks GI/Abdominal exam: Present: soft, normal bowel sounds. Absent: distended, tenderness, guarding, rebound, rigid Extremities exam: Present: full ROM, normal capillary refill, pedal edema ( Trace edema), other (Stasis dermatitis is evident on both lower extremities.). Absent: tenderness, joint swelling, calf tenderness Back exam: Present: normal inspection, full ROM. Absent: tenderness Neurological exam: Present: alert, oriented X3, CN II-XII intact Psychiatric exam: Present: normal affect, normal mood Skin exam: Present: warm, dry, intact Course Vital Signs 07/26/17 07/26/17 07/26/17 14:15 14:56 15:50 Temperature 98.1 F Pulse Rate 86 77 Pulse Rate [ 90 Sitting] Pulse Rate [ 81 Standing] Pulse Rate [ 80 Supine] Respiratory 16 16 Rate Blood Pressure 151/66 115/69 Blood Pressure 125/69 [Sitting] Blood Pressure 115/69 [Standing] Blood Pressure 129/60 [Supine] O2 Sat by Pulse 94 L 97 Oximetry Medical Decision Making - Medical Decision Making Reevaluation patient reveals she still feels weak but somewhat improved from her original his mentation. She apparently was unresponsive for about a minute per reports. I did discuss findings with the patient and with Dr. Juárez patient will be admitted for evaluation of syncope - Lab Data Result diagrams: 07/26/17 14:45 07/26/17 14:45 Lab Results 07/26/17 07/26/17 07/26/17 Range/Units 14:45 14:45 14:45 WBC 18.9 H (3.8-10.6) k/uL RBC 4.50 (3.80-5.40) m/uL Hgb 13.5 (11.4-16.0) gm/dL Hct 44.4 (34.0-46.0) % MCV 98.7 (80.0-100.0) fL MCH 29.9 (25.0-35.0) pg MCHC 30.3 L (31.0-37.0) g/dL RDW 13.0 (11.5-15.5) % Plt Count 266 (150-450) k/uL Neutrophils % 96 % Lymphocytes % 2 % Monocytes % 1 % Eosinophils % 1 % Basophils % 0 % Neutrophils # 18.2 H (1.3-7.7) k/uL Lymphocytes # 0.3 L (1.0-4.8) k/uL Monocytes # 0.2 (0-1.0) k/uL Eosinophils # 0.2 (0-0.7) k/uL Basophils # 0.0 (0-0.2) k/uL Hypochromasia Slight PT (9.0-12.0) sec INR (<1.2) APTT (22.0-30.0) sec Sodium 141 (137-145) mmol/L Potassium 4.0 (3.5-5.1) mmol/L Chloride 107 (98-107) mmol/L Carbon Dioxide 21 L (22-30) mmol/L Anion Gap 13 mmol/L BUN 28 H (7-17) mg/dL Creatinine 0.83 (0.52-1.04) mg/dL Est GFR (MDRD) Af Amer >60 (>60 ml/min/1.73 sqM) Est GFR (MDRD) Non-Af >60 (>60 ml/min/1.73 sqM) Glucose 128 H (74-99) mg/dL Calcium 9.2 (8.4-10.2) mg/dL Magnesium 1.5 L (1.6-2.3) mg/dL Total Bilirubin 0.6 (0.2-1.3) mg/dL AST 18 (14-36) U/L ALT 18 (9-52) U/L Alkaline Phosphatase 56 (38-126) U/L Total Creatine Kinase <20 L (30-135) U/L CK-MB (CK-2) 0.8 (0.0-2.4) ng/mL CK-MB (CK-2) Rel Index Troponin I <0.012 (0.000-0.034) ng/mL Total Protein 6.7 (6.3-8.2) g/dL Albumin 3.7 (3.5-5.0) g/dL Amylase 56 (30-110) U/L Lipase 65 (23-300) U/L Urine Color Urine Appearance (Clear) Urine pH (5.0-8.0) Ur Specific [place] (1.001-1.035) Urine Protein (Negative) Urine Glucose (UA) (Negative) Urine Ketones (Negative) Urine Blood (Negative) Urine Nitrite (Negative) Urine Bilirubin (Negative) Urine Urobilinogen (<2.0) mg/dL Ur Leukocyte Esterase (Negative) 07/26/17 07/26/17 Range/Units 14:45 14:45 WBC (3.8-10.6) k/uL RBC (3.80-5.40) m/uL Hgb (11.4-16.0) gm/dL Hct (34.0-46.0) % MCV (80.0-100.0) fL MCH (25.0-35.0) pg MCHC (31.0-37.0) g/dL RDW (11.5-15.5) % Plt Count (150-450) k/uL Neutrophils % % Lymphocytes % % Monocytes % % Eosinophils % % Basophils % % Neutrophils # (1.3-7.7) k/uL Lymphocytes # (1.0-4.8) k/uL Monocytes # (0-1.0) k/uL Eosinophils # (0-0.7) k/uL Basophils # (0-0.2) k/uL Hypochromasia PT 11.4 (9.0-12.0) sec INR 1.2 H (<1.2) APTT 21.6 L (22.0-30.0) sec Sodium (137-145) mmol/L Potassium (3.5-5.1) mmol/L Chloride (98-107) mmol/L Carbon Dioxide (22-30) mmol/L Anion Gap mmol/L BUN (7-17) mg/dL Creatinine (0.52-1.04) mg/dL Est GFR (MDRD) Af Amer (>60 ml/min/1.73 sqM) Est GFR (MDRD) Non-Af (>60 ml/min/1.73 sqM) Glucose (74-99) mg/dL Calcium (8.4-10.2) mg/dL Magnesium (1.6-2.3) mg/dL Total Bilirubin (0.2-1.3) mg/dL AST (14-36) U/L ALT (9-52) U/L Alkaline Phosphatase (38-126) U/L Total Creatine Kinase (30-135) U/L CK-MB (CK-2) (0.0-2.4) ng/mL CK-MB (CK-2) Rel Index Troponin I (0.000-0.034) ng/mL Total Protein (6.3-8.2) g/dL Albumin (3.5-5.0) g/dL Amylase (30-110) U/L Lipase (23-300) U/L Urine Color Yellow Urine Appearance Clear (Clear) Urine pH 5.5 (5.0-8.0) Ur Specific [place] 1.015 (1.001-1.035) Urine Protein Negative (Negative) Urine Glucose (UA) Negative (Negative) Urine Ketones Trace H (Negative) Urine Blood Negative (Negative) Urine Nitrite Negative (Negative) Urine Bilirubin Negative (Negative) Urine Urobilinogen <2.0 (<2.0) mg/dL Ur Leukocyte Esterase Negative (Negative) - EKG Data -: EKG Interpreted by Ar EKG shows normal: sinus rhythm (Normal sinus rhythm rate is 70 and appear interval 172 QRS duration 86 QT since QTC of 380/433 evidence a low voltage QRS and poor R-wave progression is noted) - Radiology Data Radiology results: report reviewed (I did review the imaging and report no acute findings.), image reviewed Disposition Clinical Impression: Syncope, Dehydration, Hypomagnesemia Disposition: ADMITTED IP TO THIS [facility] Condition: Stable Referrals: Richi Escalona MD [Primary Care Provider] - 1-2 days
[2017-07-26 15:03] LABS: Basophils % (A) 0 %; Eosinophils # (A) 0.2 k/uL (0-0.7); Eosinophils % (A) 1 %; HCT 44.4 % (34.0-46.0); HGB 13.5 gm/dL (11.4-16.0); Hypochromasia Slight; Lymphocytes # (A) 0.3 k/uL (1.0-4.8); Lymphocytes % (A) 2 %; MCH 29.9 pg (25.0-35.0); MCHC 30.3 g/dL (31.0-37.0); MCV 98.7 fL (80.0-100.0); Mean Platelet Volume 7.5; Monocytes # (A) 0.2 k/uL (0-1.0); Monocytes % (A) 1 %; Neutrophils # (A) 18.2 k/uL (1.3-7.7); Neutrophils % (A) 96 %; Platelet Count 266 k/uL (150-450); WBC 18.9 k/uL (3.8-10.6)
[2017-07-26 15:10] LABS: INR 1.2 (<1.2); Prothrombin Time 11.4 sec (9.0-12.0)
[2017-07-26 15:11] LABS: ALT 18 U/L (9-52); AST 18 U/L (14-36); Albumin 3.7 g/dL (3.5-5.0); Alkaline Phosphatase 56 U/L (38-126); Amylase 56 U/L (30-110); Anion Gap 13 mmol/L; Blood Urea Nitrogen 28 mg/dL (7-17); Calcium 9.2 mg/dL (8.4-10.2); Carbon Dioxide 21 mmol/L (22-30); Chloride 107 mmol/L (98-107); Glucose 128 mg/dL (74-99); Lipase 65 U/L (23-300); Magnesium 1.5 mg/dL (1.6-2.3); Sodium 141 mmol/L (137-145); Total Bilirubin 0.6 mg/dL (0.2-1.3); Total Protein 6.7 g/dL (6.3-8.2)
[2017-07-26 15:16] LABS: Partial Thromboplastin Time 21.6 sec (22.0-30.0)
--- NOTE | 2017-07-26 15:30 | XR ---
EXAMINATION TYPE: XR chest 2V DATE OF EXAM: 07/26/2017 COMPARISON: Prior chest x-ray 07/12/[address] chest abdomen pelvis 03/09/2017 HISTORY: Syncope, nausea and vomiting TECHNIQUE: Frontal and lateral views of the chest are obtained. FINDINGS: Dense coronary artery calcifications are noted, the aorta is dense. Patient is post median sternotomy. Patient is status post lap band. Patient is rotated. Arthropathy noted within the should ers. Right hilar region appears prominently as on prior exam possibly at least in part due to techniq ue. No airspace disease, pneumothorax, or pleural effusion. The heart is enlarged. IMPRESSION: Postop changes. Coronary artery disease. Right hilar prominence is felt likely to be sta ble and due to technique, consider follow-up.
[2017-07-26 15:35] LABS: Creatine Kinase <20 U/L (30-135)
[2017-07-26] MEDS ORDERED: MAGNESIUM SULFATE-D5W PMX 1 GM in DEXTROSE/WATER 1 100ML.BAG IVPB ONE (15:46)
[2017-07-26 15:47] LABS: Creatine Kinase MB 0.8 ng/mL (0.0-2.4); Troponin I <0.012 ng/mL (0.000-0.034)
[2017-07-26 17:31] LABS: Appearance,Urine Clear (Clear); Bilirubin,Urine Negative (Negative); Blood,Urine Negative (Negative); Color,Urine Yellow; Glucose,Urine (UA) Negative (Negative); Ketones,Urine Trace (Negative); Leukocyte Esterase,Urine Negative (Negative); Nitrite,Urine Negative (Negative); PH, Urine 5.5 (5.0-8.0); Protein,Urine Negative (Negative); Specific Gravity,Urine 1.015 (1.001-1.035); Urobilinogen,Urine <2.0 mg/dL (<2.0)
[2017-07-26] MEDS ORDERED: ACETAMINOPHEN TAB 325 MG TAB PO PRN (18:35)
[2017-07-26] MEDS ORDERED: NALOXONE 0.4 MG/ML 1 ML VIAL IV PRN (18:35)
[2017-07-26] MEDS ORDERED: NITROGLYCERIN SL TABS 0.4 MG TAB SUBLINGUAL PRN (18:38)
[2017-07-26] MEDS ORDERED: MAGNESIUM HYDROXIDE 2,400 MG/10 ML CUP PO PRN (18:38)
[2017-07-26] MEDS ORDERED: traMADol 50 MG TAB PO PRN (18:38)
[2017-07-26] MEDS ORDERED: HYDROcodone/APAP 5-325MG 1 EACH TAB PO PRN (18:38)
[2017-07-26] MEDS ORDERED: SODIUM CHLORIDE 0.9% 1,000 ML IV SCH (18:45)
[2017-07-26] MEDS ORDERED: FLUTICASONE 50MCG/SPRAY NASAL 16GM EA NOSTRIL SCH (22:00)
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
[2017-07-27] MEDS ORDERED: POTASSIUM CHLORIDE ER 20 MEQ TAB.ER PO STA (01:14)
[2017-07-27] MEDS: POTASSIUM CHLORIDE ER 20 MEQ TAB.ER PO SCH ×2 (01:20→08:48)
[2017-07-27] MEDS ORDERED: TOPIRAMATE 25 MG TAB PO SCH ×2 (08:00→17:00)
[2017-07-27] MEDS ORDERED: ASPIRIN 81 MG PO SCH (09:00)
[2017-07-27] MEDS ORDERED: RALOXIFENE 60 MG TAB PO SCH (09:00)
[2017-07-27] MEDS ORDERED: ESCITALOPRAM 20 MG TAB PO SCH (09:00)
[2017-07-27] MEDS ORDERED: DOCUSATE 100 MG CAP PO SCH (09:00)
[2017-07-27] MEDS: NYSTATIN 100,000 UNIT/GM POWD 15 GM TOPICAL SCH ×2 (10:33→12:53)
[2017-07-27] MEDS ORDERED: CYANOCOBALAMIN 500 MCG TAB PO SCH (12:00)
[2017-07-27 14:00] LABS: Basophils % (A) 0 %; Eosinophils % (A) 0 %; HGB 11.3 gm/dL (11.4-16.0); Hypochromasia Moderate; Lymphocytes % (A) 12 %; MCHC 29.8 g/dL (31.0-37.0); MCV 100.6 fL (80.0-100.0); Monocytes # (A) 0.4 k/uL (0-1.0); Monocytes % (A) 5 %; Neutrophils # (A) 6.6 k/uL (1.3-7.7); Neutrophils % (A) 82 %; Platelet Count 223 k/uL (150-450); RBC 3.78 m/uL (3.80-5.40); WBC 8.1 k/uL (3.8-10.6)
[2017-07-27 14:13] LABS: Anion Gap 7 mmol/L; Blood Urea Nitrogen 21 mg/dL (7-17); Calcium 8.8 mg/dL (8.4-10.2); Carbon Dioxide 20 mmol/L (22-30); Chloride 110 mmol/L (98-107); Glucose 82 mg/dL (74-99); Potassium 4.8 mmol/L (3.5-5.1); Sodium 137 mmol/L (137-145)
[2017-07-27 14:47] VITALS: RESP 18
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
[2017-07-27 17:44] VITALS: BP 126/72; PULSE 69; TEMP 98
--- NOTE | 2017-07-27 19:20 | DS ---
DISCHARGE SUMMARY DATE OF ADMISSION: 07/26/2017. DATE OF DISCHARGE: 07/27/2017 FINAL DIAGNOSES: 1. Syncope from dehydration from fluid deficit from acute gastroenteritis, suspected to be viral leading to vasovagal syncope. 2. Dehydration with the patient with elevated BUN. 3. Primary osteoarthritis multiple joints bilateral. 4. Coronary artery disease with prior history of coronary artery bypass. 5. Alzheimer dementia, late onset type. 6. Depression, not otherwise specified. 7. Gait dysfunction, at her baseline uses a walker. 8. Chronic left lower extremity wounds, trauma being followed by Dr. Pedersen from infectious disease. HOSPITAL COURSE: This patient, who had a dinner that upset her, had nausea, vomiting, diarrhea. Subsequently the next day when she started to travel, she passed out, felt to be vasovagal. There were no signs of infection. Did well with fluids and tolerating a diet, back to her baseline. Dr. Pedersen from ID looked at the lower extremity wound. HOME GO MEDICATIONS: 1. Nitrostat 0.4 sublingual q.5 p.r.n. 2. Klor-Con 20 mEq p.o. b.i.d. 3. Evista 60 mg p.o. daily. 4. Topamax 50 mg p.o. b.i.d. 5. Aspirin 81 mg p.o. daily. 6. Mycostatin topical b.i.d. 7. Tylenol 500 mg p.o. daily. 8. Vitamin B12 1000 mcg p.o. daily at 5:00 p.m. 9. Lexapro 20 mg p.o. daily. 10.Flonase 2 sprays each nostril q.h.s. 11.Topamax 25 mg p.o. daily. 12.PreserVision AREDS 1 capsule p.o. b.i.d. 13.Dulcolax 10 mg rectal daily p.r.n. 14.Ensure Plus 237 can p.o. daily. 15.Milk of magnesia 2400 mg p.o. daily p.r.n. 16.Adult Fleet 133 mL rectal daily p.r.n. 17.[place] 5 one tablet p.o. every 6 hours p.r.n. 18.Ultram 50 mg every 6 hours p.r.n. DISPOSITION: ECF, follow up with Dr. Escalona in the ECF. Left lower extremity wound care to continue as per Dr. Pedersen. EXAM: Lungs are clear. CARDIOVASCULAR: First and second sounds normal. MMODL / IJN: [id number] /
== END 2017-07-27 17:25 ==
LOC: EC 14:10 → 3OBS 18:35
PROVIDERS: ADMIT Hospitalist; ATTEND Hospitalist
DX: K52.9 Noninfective gastroenteritis and colitis, unspecified (principal); E86.0 Dehydration; M19.91 Primary osteoarthritis, unspecified site; Z95.1 Presence of aortocoronary bypass graft; I25.10 Atherosclerotic heart disease of native coronary artery without angina pectoris; F02.80 Dementia in other diseases classified elsewhere, unspecified severity, without behavioral disturbance, psychotic disturbance, mood disturbance, and anxiety; G30.1 Alzheimer's disease with late onset; F32.9 Major depressive disorder, single episode, unspecified; R26.9 Unspecified abnormalities of gait and mobility; S81.802A Unspecified open wound, left lower leg, initial encounter; Z79.82 Long term (current) use of aspirin; Z79.899 Other long term (current) drug therapy; Z79.1 Long term (current) use of non-steroidal anti-inflammatories (NSAID); Z79.51 Long term (current) use of inhaled steroids; D72.829 Elevated white blood cell count, unspecified; Z82.49 Family history of ischemic heart disease and other diseases of the circulatory system; E11.9 Type 2 diabetes mellitus without complications; Z87.01 Personal history of pneumonia (recurrent); E83.42 Hypomagnesemia; Z16.24 Resistance to multiple antibiotics; I10 Essential (primary) hypertension; Z88.0 Allergy status to penicillin; Z88.8 Allergy status to other drugs, medicaments and biological substances; Z87.442 Personal history of urinary calculi
CPT/HCPCS: 36415; 71046; 80048; 80053; 81003; 82150; 82550; 82553; 83690; 83735; 84484; 85025; 85610; 85730; 93005; 96361; 96365; 99285

== ENCOUNTER 2017-09-21 12:57 | Emergency (ER) | payer MEDICARE, OTHER ==
[2017-09-21 13:09] VITALS: RESP 16
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
--- NOTE | 2017-09-21 15:44 | CT ---
EXAMINATION TYPE: CT brain cspine wo con DATE OF EXAM: 09/21/2017 COMPARISON: Prior CT brain 03/17/2017 HISTORY: Patient complains of fall today. Headache, neck pain, and right shoulder pain. CT DLP: 1453 mGycm Automated exposure control for dose reduction was used. TECHNIQUE: CT scan of the head and cervical spine are performed without contrast. FINDINGS: There is no acute intracranial hemorrhage, mass effect, or midline shift identified. The ventricles and sulci are stable. Cerebral vascular calcifications are present. White matter demyelin ation changes are similar to prior exam. The globes are intact and the visualized sinuses are remark able for inflammatory change in the ethmoid air cells, right maxillary sinus. Cervical spine is visualized in its entirety from C1 through upper thoracic levels and demonstrates n ear anatomic alignment without evidence of acute fracture or dislocation. Prevertebral soft tissue a ppears within normal limits. There is multilevel spondylosis, associated loss of disc height. Multile jignesh foraminal encroachment is present. No significant central canal stenosis. Multilevel facet arthro bayron noted. The C1-C2 articulation is remarkable for arthropathy change. IMPRESSION: 1. There is no acute fracture or dislocation evident in the cervical spine. 2. No acute intracranial hemorrhage, mass effect, or midline shift is seen.
--- NOTE | 2017-09-21 15:53 | XR ---
EXAMINATION TYPE: XR shoulder complete RT DATE OF EXAM: 09/21/2017 CLINICAL HISTORY: Right shoulder pain after fall injury. TECHNIQUE: Three views of the right shoulder are obtained. COMPARISON: None. FINDINGS: Osseous structures are demineralized. There is no acute fracture evident in the right shoul bebeto. There is high riding right humeral head suggesting chronic rotator cuff tear. There is no suspi cious widening of acromioclavicular joint. Subchondral cystic change superolateral humeral head is pr esent. Glenohumeral joint is maintained. The visualized ribs are intact and unremarkable. Sternal wir es are partially imaged. IMPRESSION: There is no acute fracture or dislocation in the right shoulder.
--- NOTE | 2017-09-21 16:07 | XR ---
EXAMINATION TYPE: XR chest 2V DATE OF EXAM: 09/21/2017 COMPARISON: Chest x-ray July 26, 2017. CT chest abdomen and pelvis March 09, 2017 HISTORY: Generalized pain after fall injury. TECHNIQUE: Frontal and lateral views of the chest are obtained. FINDINGS: Sternal wires and mediastinal clips are redemonstrated. There is no focal air space opacity , pleural effusion, or pneumothorax seen. The cardiac silhouette size remains enlarged with ectatic and atherosclerotic thoracic aorta. The osseous structures remain demineralized. Prominent multilev el spurring in the mid to lower thoracic spine is redemonstrated. Right hilar prominence correlates w ith enlarged right pulmonary artery likely product of underlying pulmonary artery hypertension. IMPRESSION: Chronic changes without acute pulmonary process.
--- NOTE | 2017-09-21 16:08 | XR ---
Pelvis HISTORY: Pain, trauma Single frontal view of the pelvis correlated prior exam 03/09/2017 Patient is status post right hip arthroplasty. Vascular calcifications are noted. Bone mineralization is reduced. No acute fracture or dislocation is evident. Degenerative disc changes are present in th e visualized spine. Patient is post lap band. IMPRESSION: No acute fracture or dislocation evident, follow-up as indicated if occult fracture is stock spected. Additional findings above.
[2017-09-21 17:02] VITALS: BP 138/70; PULSE 78; TEMP 97.9
== END 2017-09-21 17:37 | disposition home or self-care (01) ==
LOC: EC 12:57
DX: S40.011A Contusion of right shoulder, initial encounter (principal); I10 Essential (primary) hypertension; M81.0 Age-related osteoporosis without current pathological fracture; Z95.1 Presence of aortocoronary bypass graft; Z95.818 Presence of other cardiac implants and grafts; Z79.82 Long term (current) use of aspirin; Z79.51 Long term (current) use of inhaled steroids; Z79.899 Other long term (current) drug therapy; Z88.8 Allergy status to other drugs, medicaments and biological substances; Z88.0 Allergy status to penicillin; W01.198A Fall on same level from slipping, tripping and stumbling with subsequent striking against other object, initial encounter; Y92.121 Bathroom in nursing home as the place of occurrence of the external cause
CPT/HCPCS: 70450; 71046; 72125; 72170; 99284

== ENCOUNTER 2017-12-20 11:02 | Emergency (ER) | payer MEDICARE, OTHER ==
[2017-12-20 11:11] VITALS: RESP 18; TEMP 98.1
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
--- NOTE | 2017-12-20 11:48 | CT ---
EXAMINATION TYPE: CT brain toro kwok con DATE OF EXAM: 12/20/2017 COMPARISON: 09/21/2017 HISTORY: Fall CT DLP: 1272.[address] of the brain was performed. The ventricles, basal cisterns and sulci overlying the cerebral convexities demonstrate moderate enla rgement. There is no evidence for intracranial hemorrhage or sulcal effacement. There is decreased attenuatio n about the periventricular white matter and deep white matter of both cerebral hemispheres, compatib le with chronic small vessel ischemia. No mass effects are seen. If symptoms persist consider MRI. Osseous calvarium is intact. IMPRESSION: 1. Age related atrophic and chronic small vessel ischemic change without acute intracranial process seen at this time. CT Cervical Spine: Unenhanced CT of the cervical spine was performed with bone and soft tissue window settings submitted . Coronal and sagittal reconstruction is obtained. There is normal alignment and prevertebral soft tissues. No evidence for acute cervical fracture . Scattered degenerative disc disease and spondylosis. Biapical scarring. IMPRESSION: 1. No evidence for acute fracture or subluxation of the cervical spine.
--- NOTE | 2017-12-20 12:20 | XR ---
AP pelvis HISTORY: Trauma and pain Single frontal view of the pelvis correlated to prior exam 09/21/2017 Patient is status post right hip arthroplasty. Vascular calcifications are again noted. Bone minerali zation is reduced. IMPRESSION: No fracture or dislocation.
[2017-12-20] MEDS ORDERED: HYDROcodone/APAP 5-325MG 1 EACH TAB PO STA (12:27)
[2017-12-20 13:02] VITALS: BP 147/71; PULSE 65
== END 2017-12-20 14:05 | disposition home or self-care (01) ==
LOC: EC 11:02
DX: S70.01XA Contusion of right hip, initial encounter (principal); S70.02XA Contusion of left hip, initial encounter; S09.90XA Unspecified injury of head, initial encounter; I25.10 Atherosclerotic heart disease of native coronary artery without angina pectoris; F03.90 Unspecified dementia, unspecified severity, without behavioral disturbance, psychotic disturbance, mood disturbance, and anxiety; I10 Essential (primary) hypertension; M19.90 Unspecified osteoarthritis, unspecified site; M81.0 Age-related osteoporosis without current pathological fracture; Z95.1 Presence of aortocoronary bypass graft; Z95.818 Presence of other cardiac implants and grafts; Z96.653 Presence of artificial knee joint, bilateral; Z79.82 Long term (current) use of aspirin; Z79.51 Long term (current) use of inhaled steroids; Z79.52 Long term (current) use of systemic steroids; Z79.1 Long term (current) use of non-steroidal anti-inflammatories (NSAID); Z79.899 Other long term (current) drug therapy; Z88.8 Allergy status to other drugs, medicaments and biological substances; Z88.0 Allergy status to penicillin; W19.XXXA Unspecified fall, initial encounter; Y92.009 Unspecified place in unspecified non-institutional (private) residence as the place of occurrence of the external cause
CPT/HCPCS: 70450; 72125; 72170; 99284

== ENCOUNTER 2018-01-14 14:59 | Inpatient (IN) | payer MEDICARE, OTHER ==
[2018-01-14] MEDS ORDERED: SODIUM CHLORIDE 0.9% 500 ML IV STA (15:53)
[2018-01-14] MEDS ORDERED: SODIUM CHLORIDE 0.9% 1,000 ML IV STA (15:53)
[2018-01-14 16:53] LABS: Basophils % (A) 0 %; Eosinophils # (A) 0.2 k/uL (0-0.7); Eosinophils % (A) 2 %; HCT 38.4 % (34.0-46.0); HGB 12.2 gm/dL (11.4-16.0); Lymphocytes # (A) 1.3 k/uL (1.0-4.8); Lymphocytes % (A) 17 %; MCH 30.4 pg (25.0-35.0); MCHC 31.7 g/dL (31.0-37.0); MCV 95.9 fL (80.0-100.0); Mean Platelet Volume 7.4; Monocytes # (A) 0.5 k/uL (0-1.0); Monocytes % (A) 6 %; Neutrophils # (A) 5.6 k/uL (1.3-7.7); Neutrophils % (A) 73 %; Platelet Count 237 k/uL (150-450); RDW 13.4 % (11.5-15.5); WBC 7.6 k/uL (3.8-10.6)
[2018-01-14 17:08] LABS: Creatine Kinase 42 U/L (30-135)
[2018-01-14 17:10] LABS: INR 1.2 (<1.2); Prothrombin Time 11.5 sec (9.0-12.0)
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
[2018-01-14 17:21] LABS: Creatine Kinase MB 1.4 ng/mL (0.0-2.4); Troponin I <0.012 ng/mL (0.000-0.034)
--- NOTE | 2018-01-14 17:22 | CT ---
EXAMINATION TYPE: CT brain toro kwok con DATE OF EXAM: 01/14/2018 COMPARISON: 29/03/2018 HISTORY: fall CT DLP: 1033.7 mGycm, Automated exposure control for dose reduction was used. CONTRAST: Patient injected with 0 mL of Isovue 300. CT of the brain is performed utilizing 3 mm thick sections through the posterior fossa and 3 mm thick sections through the remaining calvarium. Study is performed within 24 hours of arrival to the hospital. No abnormal hyperdensity is present to suggest an acute intracranial hemorrhage. No mass lesion is evident. No acute infarcts are evident. Mild periventricular white matter changes are present. Ventricles and sulci are prominent for the patient age. There is prominent soft tissue swelling over the right orbit. No underlying fracture is evident. Paranasal sinuses and mastoid air cells within the [id number] are clear. IMPRESSIONS: 1. Atrophy. Mild chronic appearing white matter changes may be present. 2. Prominent soft tissue swelling over the right orbit. No underlying fracture. CT cervical spine. COMPARISON: None CT of the cervical spine is performed in the axial plane at 2 mm thick sections. Reconstructed image s in the coronal, and sagittal plane are reviewed on the computer. No acute fractures are evident. Vertebral body alignment is normal. There is loss of disc height through the cervical spine. Vertebral body heights are preserved. No spinal canal stenosis is evident. Foraminal narrowing is present C3-4 due to uncovertebral joint hypertrophy. Severe uncovertebral join t hypertrophy has severe foraminal narrowing C4-5 bilaterally. There is some mild foraminal narrowing C5-6 and right C6-7 due to uncovertebral joint hypertrophy. Some endplate changes are present C4-5 r ight IMPRESSIONS: 1. Degenerative changes including degenerative disc changes and foraminal stenosis discussed above. 2. No acute fractures evident.
--- NOTE | 2018-01-14 17:23 | CT ---
EXAMINATION TYPE: CT facial bones wo con DATE OF EXAM: 01/14/2018 COMPARISON: None HISTORY: fall CT DLP: 612 mGycm CONTRAST: 0 mL of Isovue 300 The paranasal sinuses are examined in the axial plane at 2 mm thick sections. Reconstructed images i n the coronal plane were obtained. There is dental amalgam scatter artifact. Zygomatic arches are intact. Greater wings of sphenoid are intact. Nasal bones are intact. Maxillary spine is intact. The right orbit appears intact. No blowout fractures or fractures along the medial wall are evident. Left orbit likewise appears normal. Promin ent soft tissue swelling over the right orbit is again evident. The maxillary sinuses are clear. The ethmoid air cells are clear. Minimal fluid is within the right sphenoid sinus. The frontal sinuses are clear. The septum is evaluated. There is septal deviation to the right. The ostiomeatal units are patent. IMPRESSIONS: 1. Prominent soft tissue swelling over the right orbit. No underlying fracture is evident. 2. Very minimal fluid within the right sphenoid sinus
[2018-01-14 17:24] LABS: Albumin 3.5 g/dL (3.5-5.0); Calcium 8.9 mg/dL (8.4-10.2); Total Bilirubin 0.4 mg/dL (0.2-1.3); Total Protein 6.4 g/dL (6.3-8.2)
[2018-01-14 17:30] LABS: Potassium 4.7 mmol/L (3.5-5.1)
--- NOTE | 2018-01-14 18:35 | XR ---
EXAMINATION TYPE: XR chest 1V portable DATE OF EXAM: 01/14/2018 COMPARISON: 09/21/2017 INDICATION: Trauma TECHNIQUE: Single frontal view of the chest is obtained. FINDINGS: The heart size is mildly prominent. The pulmonary vasculature is normal. The lungs are clear. No pneumothorax is evident. There is elevation of the right shoulder and narrowing of the acromiohume ral space compatible with chronic rotator cuff tear. No acute rib fractures are evident. No pneumotho rax is evident. IMPRESSION: 1. No acute pulmonary process. 2. Mild cardiomegaly
--- NOTE | 2018-01-14 18:53 | XR ---
EXAMINATION TYPE: XR pelvis AP view DATE OF EXAM: 01/14/2018 COMPARISON: 12/20/2017 HISTORY: Trauma TECHNIQUE: Single AP pelvis FINDINGS: There is a right hip prosthesis. Left hip articulates with the acetabulum. Vascular calcifi cation is present. Normal bowel gas is present. Sacroiliac joints appear intact. Symphysis pubis appe ars normal. No acute fractures are evident. IMPRESSION: 1. No acute osseous abnormality.
[2018-01-14 19:08] LABS: Appearance,Urine Clear (Clear); Bilirubin,Urine Negative (Negative); Blood,Urine Negative (Negative); Color,Urine Colorless; Glucose,Urine (UA) Negative (Negative); Ketones,Urine Negative (Negative); Leukocyte Esterase,Urine Negative (Negative); Nitrite,Urine Negative (Negative); PH, Urine 7.5 (5.0-8.0); Protein,Urine Negative (Negative); Specific Gravity,Urine 1.005 (1.001-1.035); Urobilinogen,Urine <2.0 mg/dL (<2.0)
[2018-01-14 20:08] LABS: Magnesium 2.1 mg/dL (1.6-2.3); Phosphorus 3.6 mg/dL (2.5-4.5)
[2018-01-14 21:15] VITALS: BMI 29.2
[2018-01-14] MEDS: SODIUM CHLORIDE 0.9% 1,000 ML IV SCH (22:45)
[2018-01-15 03:59] LABS: Cholesterol 150 mg/dL (<200); HDL Cholesterol 33 mg/dL (40-60); LDL Cholesterol,Calculated 103 mg/dL (0-99); Triglycerides 69 mg/dL (<150)
[2018-01-15] MEDS: SODIUM CHLORIDE 0.9% 1,000 ML IV SCH ×2 (08:26→16:45)
[2018-01-15] MEDS: ENOXAPARIN 40 MG/0.4 ML SYRINGE SQ SCH (08:26)
--- NOTE | 2018-01-15 12:07 | CONS ---
CONSULTATION DATE OF SERVICE: 01/15/2018. HISTORY: An 82-year-old female, who is seen for cardiac evaluation. This patient's medical chart, laboratory tests and medications were reviewed. The patient is a rather poor historian. Patient was brought to the hospital with a history of fall. According to the family members, patient has a history of recent multiple falls, exactly do not know whether the patient has a history of syncope. The patient has a history of stable coronary artery disease with a prior history of coronary artery bypass surgery. The patient has not been complaining of any anginal pain, any orthopnea, or PND. HOME MEDICATIONS: Evista, Lexapro, Flonase, Colace, Voltaren, VESIcare. ALLERGIES: PENICILLIN, BENADRYL, STEROIDS. PAST MEDICAL HISTORY: Includes a history of back surgery, bariatric surgery, , coronary artery bypass surgery, joint replacement, orthopedic surgery, and appendectomy. PHYSICAL EXAMINATION: At present reveals an 82-year-old female who has altered mental status. She does not answer questions appropriately, however, patient is not in any acute respiratory or cardiac distress. In the emergency room, patient's oxygen saturation was 99%, blood pressure was 150/67, and temperature was 99.4. At present, the patient is afebrile, blood pressure is 114/64 mmHg. HEENT: Examination is negative. NECK: Supple. There is no increase in jugular venous pressure. Both the carotid pulses are felt. There is no bruit. CHEST: Symmetrical. HEART: PMI is not felt. First and second heart sounds are normal. There is no evidence of any murmur. LUNGS: Clinically clear to auscultation and percussion. ABDOMEN: Negative. EXTREMITIES: Peripheral pulses are not felt. LABORATORY DATA: EKG shows normal sinus rhythm without any acute ischemic changes. The patient's electrolytes are normal. Hemoglobin is 12.2. Troponins are negative. FINAL IMPRESSION: This patient has been having recurrent falls, exact etiology undetermined. Rule out any significant arrhythmia or rule out any significant orthostatic hypotension. PLAN: We will give the patient's IV fluids at 50 mL/hour. Echo and Doppler study will be done. The patient will be monitored to assess for any arrhythmia. MMODL / IJN: [id number] /
[2018-01-15] MEDS ORDERED: guaiFENesin SYRUP 100MG/5ML 200 MG/10 ML CUP PO PRN (13:32)
[2018-01-15] MEDS ORDERED: HYDROcodone/APAP 5-325MG 1 EACH TAB PO PRN (13:35)
[2018-01-15] MEDS ORDERED: traMADol 50 MG TAB PO PRN (13:35)
[2018-01-15] MEDS ORDERED: MENTHOL-ZINC OXIDE OINT 113 GM TUBE TOPICAL PRN (13:35)
[2018-01-15] MEDS ORDERED: NITROGLYCERIN SL TABS 0.4 MG TAB SUBLINGUAL PRN (13:35)
[2018-01-15] MEDS: CIPROFLOXACIN HCL 500 MG TAB PO SCH ×2 (14:11→21:08)
[2018-01-15] MEDS: ASPIRIN 81 MG PO SCH (16:45)
[2018-01-15] MEDS: DICLOFENAC SODIUM GEL 100 GM TUBE TOPICAL SCH ×2 (16:46→21:05)
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
[2018-01-15] MEDS: CLOBETASOL PROP 0.05% OINT 15GM TOPICAL SCH (21:05)
[2018-01-15] MEDS: MINERAL OIL-WHITE PETROLATUM 120 GM JAR TOPICAL SCH (21:07)
[2018-01-15] MEDS: TROSPIUM CHLORIDE 20 MG TABLET PO SCH (21:07)
[2018-01-15] MEDS: FLUTICASONE 50MCG/SPRAY NASAL 16GM EA NOSTRIL SCH (21:07)
[2018-01-15] MEDS: TOPIRAMATE 25 MG TAB PO SCH (21:08)
[2018-01-16] MEDS: DICLOFENAC SODIUM GEL 100 GM TUBE TOPICAL SCH ×4 (08:59→21:13)
[2018-01-16] MEDS: CLOBETASOL PROP 0.05% OINT 15GM TOPICAL SCH ×2 (09:01→09:07)
[2018-01-16] MEDS: FAMOTIDINE 20 MG TAB PO SCH ×2 (09:02→09:06)
[2018-01-16] MEDS: DOCUSATE 100 MG CAP PO SCH ×2 (09:02→09:06)
[2018-01-16] MEDS: ESCITALOPRAM 20 MG TAB PO SCH (09:02)
[2018-01-16] MEDS: POTASSIUM CHLORIDE ER 20 MEQ TAB.ER PO SCH ×2 (09:03→09:06)
[2018-01-16] MEDS: FUROSEMIDE 20 MG TAB PO SCH ×2 (09:03→09:06)
[2018-01-16] MEDS: VIT A,C & E-LUTEIN-MINERALS 1 EACH TAB PO SCH (09:05)
[2018-01-16] MEDS: ENOXAPARIN 40 MG/0.4 ML SYRINGE SQ SCH (09:05)
[2018-01-16] MEDS: TOPIRAMATE 25 MG TAB PO SCH ×2 (09:06→21:14)
[2018-01-16] MEDS: TROSPIUM CHLORIDE 20 MG TABLET PO SCH ×2 (09:06→21:14)
[2018-01-16] MEDS: CIPROFLOXACIN HCL 500 MG TAB PO SCH ×2 (09:06→21:14)
[2018-01-16] MEDS: RALOXIFENE 60 MG TAB PO SCH (09:21)
[2018-01-16] MEDS: ACETAMINOPHEN TAB 500 MG TAB PO SCH (11:50)
--- NOTE | 2018-01-16 12:03 | ECHOF ---
Referral Reason:syncope MEASUREMENTS -------- HEIGHT: 132.1 cm WEIGHT: 63.5 kg BP: IVSd: 1.0 cm (0.6 - 1.1) LVIDd: 3.6 cm (3.9 - 5.3) LVPWd: 1.4 cm (0.6 - 1.1) IVSs: 1.6 cm LVIDs: 1.9 cm LVPWs: 2.0 cm Ao Diam: 3.3 cm (2.0 - 3.7) AV Cusp: 1.7 cm (1.5 - 2.6) LA Diam: 4.7 cm (2.7 - 3.8) MV EXCURSION: 9.718 mm (> 18.000) MV EF SLOPE: 61 mm/s (70 - 150) EPSS: 0.8 cm MV E Michael: 0.72 m/s MV DecT: 187 ms MV A Michael: 0.84 m/s MV E/A Ratio: 0.86 RAP: 5.00 mmHg RVSP: 27.89 mmHg FINDINGS -------- Sinus rhythm. This was a technically difficult study with suboptimal views. The left ventricular size is normal. There is mild concentric left ventricular hypertrophy. Overa ll left ventricular systolic function is normal with, an EF between 55 - 60 %. The right ventricle is normal in size and function. The left atrium is moderately dilated. The right atrium is normal in size. Lumason used Aortic valve is trileaflet and is mildly thickened. The mitral valve leaflets are mildly thickened. Mild mitral regurgitation is present. Mild tricuspid regurgitation present. The right ventricular systolic pressure, as measured by Doppl er, is 27.89mmHg. Pulmonic valve appears structurally normal. The aortic root size is normal. CONCLUSIONS -------- 1. Sinus rhythm. 2. This was a technically difficult study with suboptimal views. 3. The left ventricular size is normal. 4. There is mild concentric left ventricular hypertrophy. 5. Overall left ventricular systolic function is normal with, an EF between 55 - 60 %. 6. The right ventricle is normal in size and function. 7. The left atrium is moderately dilated. 8. The right atrium is normal in size. 9. Lumason used 10. Aortic valve is trileaflet and is mildly thickened. 11. The mitral valve leaflets are mildly thickened. 12. Mild mitral regurgitation is present. 13. Mild tricuspid regurgitation present. 14. The right ventricular systolic pressure, as measured by Doppler, is 27.89mmHg. 15. Pulmonic valve appears structurally normal. 16. The aortic root size is normal. PIEROGI MAKER: Caroline John RDCS
[2018-01-16] MEDS: ASPIRIN 81 MG PO SCH (17:10)
--- NOTE | 2018-01-16 17:20 | PN ---
PROGRESS NOTE The patient has been doing fairly well. Remains stable. No dysrhythmias are noted. There is no evidence of any dizziness, lightheadedness or syncope. The first and second heart sounds are normal. Lungs are clear to auscultation and percussion. We will check the orthostatic hypotension today. Physical therapy suggested. Echocardiogram reveals normal left ventricular systolic function. MMODL / IJN: [id number] /
[2018-01-16] MEDS: SODIUM CHLORIDE 0.9% 1,000 ML IV SCH (21:06)
[2018-01-16] MEDS: FLUTICASONE 50MCG/SPRAY NASAL 16GM EA NOSTRIL SCH (21:13)
[2018-01-16] MEDS: MINERAL OIL-WHITE PETROLATUM 120 GM JAR TOPICAL SCH (21:15)
--- NOTE | 2018-01-16 22:08 | PN ---
PROGRESS NOTE DATE OF SERVICE: 01/16/2018 PRESENTING COMPLAINT: Fall. INTERVAL HISTORY: The patient who is not the best historian, presented with a fall periorbital bilateral bruising and still a small hematoma. No arrhythmias picked up on telemetry. Did tolerate some diet. REVIEW OF SYSTEMS: Done for constitutional, cardiovascular, GI, pulmonary, endocrine; findings as above. CURRENT MEDICATIONS: Reviewed. PHYSICAL EXAMINATION: Temperature 99.5, pulse 72, respiratory 18, blood pressure 115/77, pulse ox 98% on room air. GENERAL APPEARANCE: Sitting up, awake. EYES: Pupils equal. Subconjunctival hemorrhage on the right side. Periorbital bilateral bruising and a small hematoma on the upper lateral part. RESPIRATORY: Effort normal. LUNGS: Fair entry. CARDIOVASCULAR: First and seconds sounds. No edema. ABDOMEN: Soft, nontender. Liver and spleen not palpable. PSYCHIATRY: The patient answers some simple questions. INVESTIGATIONS: LDL 103. Troponin negative. ASSESSMENT: 1. Fall, could be from poor balance, exact cause unknown. 2. Coronary artery disease with prior history of coronary bypass. 3. Moderate cognitive impairment probably from late onset Alzheimer's dementia. 4. Depression, not otherwise specified on Lexapro. 5. Essential hypertension. 6. Primary osteoarthritis, especially in the hands. 7. Gait dysfunction at baseline, using a walker and cane. 8. Subconjunctival hemorrhage in the right eye along with periorbital bruising and a small hematoma from fall. PLAN: I will watch the patient overnight. Could hopefully be discharged tomorrow. MMODL / IJN: [id number] /
[2018-01-17] MEDS: SODIUM CHLORIDE 0.9% 1,000 ML IV SCH (06:46)
[2018-01-17] MEDS: DICLOFENAC SODIUM GEL 100 GM TUBE TOPICAL SCH ×4 (08:27→20:17)
[2018-01-17] MEDS: CLOBETASOL PROP 0.05% OINT 15GM TOPICAL SCH ×2 (08:27→20:18)
[2018-01-17] MEDS: ENOXAPARIN 40 MG/0.4 ML SYRINGE SQ SCH (08:29)
[2018-01-17] MEDS: ESCITALOPRAM 20 MG TAB PO SCH (08:29)
[2018-01-17] MEDS: TOPIRAMATE 25 MG TAB PO SCH ×2 (08:29→20:18)
[2018-01-17] MEDS: CIPROFLOXACIN HCL 500 MG TAB PO SCH ×2 (08:29→20:18)
[2018-01-17] MEDS: TROSPIUM CHLORIDE 20 MG TABLET PO SCH ×2 (08:29→20:18)
[2018-01-17] MEDS: VIT A,C & E-LUTEIN-MINERALS 1 EACH TAB PO SCH (08:29)
[2018-01-17] MEDS: RALOXIFENE 60 MG TAB PO SCH (08:30)
[2018-01-17] MEDS: ACETAMINOPHEN TAB 500 MG TAB PO SCH (08:34)
[2018-01-17] MEDS: ASPIRIN 81 MG PO SCH (08:36)
[2018-01-17] MEDS: MINERAL OIL-WHITE PETROLATUM 120 GM JAR TOPICAL SCH (20:18)
[2018-01-17] MEDS: FLUTICASONE 50MCG/SPRAY NASAL 16GM EA NOSTRIL SCH (20:18)
--- NOTE | 2018-01-17 23:51 | PN ---
PROGRESS NOTE DATE OF SERVICE: 01/17/2018 PRESENTING COMPLAINT: Fall. INTERVAL HISTORY: This patient presented with a fall. No arrhythmia was found. Tolerating a diet. 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 No other new issues. REVIEW OF SYSTEMS: Done for constitutional, cardiovascular, GI, pulmonary; relevant findings as above. CURRENT MEDICATIONS: Reviewed. EXAMINATION: Temperature 97.6, pulse 81, respirations 18, blood pressure 136/83, pulse ox 98% on room air. GENERAL APPEARANCE: Sitting up, awake. EYES: Pupils equal. Conjunctivae improved in the right eye. Periorbital bruising, small hematoma outside the right eye. RESPIRATORY: Effort normal. Lungs are clear. CARDIOVASCULAR: First and second sounds normal. No edema. ABDOMEN: Soft, nontender. Liver and spleen not palpable. PSYCHIATRY: Awake, answering simple questions. INVESTIGATIONS: LDL 103. ASSESSMENT: 1. Fall, could be from poor balance. Arrhythmia could not be ruled out. 2. Coronary artery disease, prior history of coronary bypass. 3. Moderate cognitive impairment, probably from late onset Alzheimer dementia. 4. Depression, not otherwise specified, on Lexapro. 5. Essential hypertension. 6. Primary osteoarthritis, especially in the hands. 7. Gait dysfunction, at baseline using a walker and cane. 8. Right eye subconjunctival hemorrhage along with periorbital bruising and a small hematoma outside the left eye. PLAN: Continue medication and treatment plan. loft worker head looking into getting the patient into inpatient rehab. MMODL / IJN: [id number] /
[2018-01-18] MEDS: BACITRACIN 500 UNIT/GM OINT 28.4 GM TUBE TOPICAL SCH ×2 (01:43→12:42)
[2018-01-18 04:54] VITALS: TEMP 97.9
[2018-01-18] MEDS: DICLOFENAC SODIUM GEL 100 GM TUBE TOPICAL SCH ×2 (09:23→12:43)
[2018-01-18] MEDS: CLOBETASOL PROP 0.05% OINT 15GM TOPICAL SCH (09:23)
[2018-01-18] MEDS: ESCITALOPRAM 20 MG TAB PO SCH ×2 (09:24→09:27)
[2018-01-18] MEDS: DOCUSATE 100 MG CAP PO SCH ×2 (09:24→09:27)
[2018-01-18] MEDS: FUROSEMIDE 20 MG TAB PO SCH ×2 (09:25→09:27)
[2018-01-18] MEDS: POTASSIUM CHLORIDE ER 20 MEQ TAB.ER PO SCH ×2 (09:25→09:27)
[2018-01-18] MEDS: FAMOTIDINE 20 MG TAB PO SCH ×2 (09:25→09:27)
[2018-01-18] MEDS: ASPIRIN 81 MG PO SCH (09:27)
[2018-01-18] MEDS: VIT A,C & E-LUTEIN-MINERALS 1 EACH TAB PO SCH (09:27)
[2018-01-18] MEDS: RALOXIFENE 60 MG TAB PO SCH (09:27)
[2018-01-18] MEDS: TROSPIUM CHLORIDE 20 MG TABLET PO SCH (09:27)
[2018-01-18] MEDS: CIPROFLOXACIN HCL 500 MG TAB PO SCH (09:27)
[2018-01-18] MEDS: TOPIRAMATE 25 MG TAB PO SCH (09:27)
[2018-01-18 11:01] VITALS: RESP 16
[2018-01-18] MEDS: ENOXAPARIN 40 MG/0.4 ML SYRINGE SQ SCH (12:42)
[2018-01-18] MEDS: ACETAMINOPHEN TAB 500 MG TAB PO SCH (12:42)
[2018-01-18] MEDS: SODIUM CHLORIDE 0.9% 1,000 ML IV SCH (12:43)
[2018-01-18 12:48] VITALS: BP 115/61; PULSE 87
--- NOTE | 2018-01-18 16:55 | DS ---
DISCHARGE SUMMARY DATE OF ADMISSION: 01/14/2018 DATE OF DISCHARGE: 01/18/2018. FINAL DIAGNOSES: 1. Recurrent falls from probably poor balance, and be ruled out. 2. Coronary artery disease, prior history of coronary bypass. 3. Moderate cognitive impairment probably from late onset Alzheimer's dementia. 4. Depression, not otherwise specified Lexapro. 5. Essential hypertension. 6. Primary osteoarthritis especially in the hands. 7. Gait dysfunction at baseline using a walker and cane. 8. Right eye subconjunctival hemorrhage. 9. Periorbital bruising and a small hematoma outside the right eye. HOSPITAL COURSE: This patient presented with a fall with bruising on the right eye and some hematoma outside the right eye. The patient was seen by Cardiology. 2D echocardiogram showed preserved LV function. No arrhythmia was picked up. The patient is otherwise tolerating a diet. On examination, right periorbital bruising, small hematoma and slight breakdown of skin. Topical Bacitracin was given. The patient otherwise tolerating a diet. On examination, afebrile. Pulse 87, Respiratory rate 16. Blood pressure 105/61. CONSULTATION: Dr. Kurt Mcnamara from Cardiology. DISCHARGE MEDICATIONS: 1. Nitrostat 0.4 q.5h p.r.n. 2. Potassium 20 mEq p.o. daily. 3. Evista 60 mg p.o. daily. 4. Topamax 50 mg p.o. b.i.d. 5. Aspirin 81 mg p.o. daily. 6. Lexapro 20 mg p.o. daily. 7. Flonase 2 sprays each nostril q.h.s. 8. PreserVision 2 soft gel 1 capsule p.o. b.i.d. 9. [place] 5 one tablet q.6h p.r.n. 10.Ultram 50 mg q.6 p.r.n. 11.Colace 100 mg p.o. daily. 12.Lasix 20 mg p.o. daily. 13.Tylenol 500 mg p.o. daily. 14.Betamethasone 0.05% topical b.i.d. 15.Voltaren gel 2 g topical q.i.d. 16.Eucerin cream topical q.h.s. 17.Calmoseptine ointment topical daily p.r.n. 18.Zantac 150 mg p.o. daily. 19.Robitussin 200 mg q.6h p.r.n. 20.VESIcare 10 mg p.o. daily. 21.Cipro 500 mg b.i.d. 22.Bacitracin ointment topical b.i.d. DISPOSITION: Kristen. FOLLOWUP: With [facility] in 2 weeks, Dr. Welch on January 19, 2018. Visiting physician Dr. Ring after discharge from the [facility]. Copy to visiting physician Dr. Ring. MMODL / IJN: [id number] /
== END 2018-01-18 22:27 | DRG 310 ==
LOC: SUPCPDRO 14:59 → EC 14:59 → 6SEL 19:17
PROVIDERS: ADMIT Hospitalist; ATTEND Hospitalist
DX: I49.9 Cardiac arrhythmia, unspecified (principal); R55 Syncope and collapse; E11.9 Type 2 diabetes mellitus without complications; R26.81 Unsteadiness on feet; F02.80 Dementia in other diseases classified elsewhere, unspecified severity, without behavioral disturbance, psychotic disturbance, mood disturbance, and anxiety; F32.9 Major depressive disorder, single episode, unspecified; G30.1 Alzheimer's disease with late onset; H11.31 Conjunctival hemorrhage, right eye; I10 Essential (primary) hypertension; I25.10 Atherosclerotic heart disease of native coronary artery without angina pectoris; M81.0 Age-related osteoporosis without current pathological fracture; N20.0 Calculus of kidney; R29.6 Repeated falls; S00.11XA Contusion of right eyelid and periocular area, initial encounter; S09.90XA Unspecified injury of head, initial encounter; R26.9 Unspecified abnormalities of gait and mobility; M15.9 Polyosteoarthritis, unspecified; Z79.82 Long term (current) use of aspirin; Z79.899 Other long term (current) drug therapy; Z88.0 Allergy status to penicillin; Z88.8 Allergy status to other drugs, medicaments and biological substances; Z96.653 Presence of artificial knee joint, bilateral; Z95.1 Presence of aortocoronary bypass graft; Z90.710 Acquired absence of both cervix and uterus; Z87.442 Personal history of urinary calculi; Z98.84 Bariatric surgery status; Z90.49 Acquired absence of other specified parts of digestive tract; Z82.49 Family history of ischemic heart disease and other diseases of the circulatory system; W18.30XA Fall on same level, unspecified, initial encounter
CPT/HCPCS: 36415; 70450; 70486; 71045; 72125; 72170; 80053; 80061; 81003; 82550; 82553; 83735; 84100; 84484; 85025; 85610; 85730; 86850; 86900; 86901; 93005; 93306; 96360; 96361; 99285

== ENCOUNTER 2018-05-25 03:10 | Emergency (ER) | payer MEDICARE, OTHER ==
[2018-05-25] MEDS ORDERED: DIPH,PERTUS(ACELL)TETVAC-LF 0.5 ML VIAL IM ONE (03:48)
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
[2018-05-25 05:58] VITALS: BP 116/62; PULSE 82; RESP 16; TEMP 98.1
== END 2018-05-25 05:25 | disposition home or self-care (01) ==
LOC: EC 03:10
DX: S81.811A Laceration without foreign body, right lower leg, initial encounter (principal); I25.119 Atherosclerotic heart disease of native coronary artery with unspecified angina pectoris; E11.9 Type 2 diabetes mellitus without complications; I10 Essential (primary) hypertension; M19.90 Unspecified osteoarthritis, unspecified site; M81.0 Age-related osteoporosis without current pathological fracture; Z79.82 Long term (current) use of aspirin; Z79.899 Other long term (current) drug therapy; Z88.0 Allergy status to penicillin; Z88.8 Allergy status to other drugs, medicaments and biological substances; Z95.1 Presence of aortocoronary bypass graft; Z96.653 Presence of artificial knee joint, bilateral; Z95.818 Presence of other cardiac implants and grafts; Z53.29 Procedure and treatment not carried out because of patient's decision for other reasons; W45.8XXA Other foreign body or object entering through skin, initial encounter
CPT/HCPCS: 12004; 99284